=== PATIENT | male | born 1955 | race Caucasian/White ===

== ENCOUNTER → 2018-03-13 | Outpatient (CLI) | payer MEDICARE ==
--- NOTE | 2018-03-13 09:47 | US ---
EXAMINATION TYPE: US gallbladder DATE OF EXAM: 03/13/2018 COMPARISON: NONE CLINICAL HISTORY: R10.11 Abd Pain. acid reflux getting worse EXAM MEASUREMENTS: Liver Length: 14.8 cm Gallbladder Wall: 0.2 cm CBD: 0.6 cm Right Kidney: 10.3 x 5.3 x 5.1 cm Pancreas: not seen due to bowel gas Liver: multiple cystic areas seen, largest 4.6cm Gallbladder: wnl Evidence for sonographic Vega's sign: no CBD: wnl Right Kidney: wnl Suboptimal evaluation of pancreas due to overlying bowel gas. A few thin-walled cysts some with lobul ation and thin septation are marked by technologist throughout the liver. IMPRESSION: No shadowing mobile gallstones or ultrasound evidence for acute cholecystitis.
== END | disposition home or self-care (01) ==
LOC: RADUSWWP 08:17
PROVIDERS: ATTEND Family Medicine
DX: R10.11 Right upper quadrant pain (principal)
CPT/HCPCS: 76705

== ENCOUNTER 2018-05-13 09:48 | Day surgery (SDC) | payer MEDICARE ==
[2018-05-08 17:27] VITALS: BMI 32.5
[~2018-05-13 09:48] MED LIST: LACTATED RINGERS 1,000 ML IV SCH; LIDOCAINE 1% 20 ML VIAL (10MG/ML) FOR IV START INTRADERMA PRN
[2018-05-13 10:33] VITALS: RESP 18; TEMP 97.6
[2018-05-13] MEDS ORDERED: LACTATED RINGERS 1,000 ML IV ONE (10:38)
[2018-05-13] MEDS ORDERED: PROPOFOL 10 MG/ML 20 ML VIAL IV ONE (10:39)
[2018-05-13] MEDS ORDERED: LIDOCAINE 1% INJ 10MG/ML (20 ML MDV) ONE (10:39)
--- NOTE | 2018-05-13 10:44 | P.GSHP ---
History of Present Illness H&P Date: 05/13/18 Chief Complaint: GERD, change in bowel habits Patient here today for upper and lower endoscopy. Complaining of mild reflux. Reflux symptoms fairly well controlled with antiacid therapy. Also has had some change in bowel habits with thinner stools and increased flatus. Last colonoscopy 8-10 years ago. That study was normal. He does have a personal history of colon polyps. No family history of colon cancer. Past Medical History Past Medical History: GERD/Reflux, Hypertension, Osteoarthritis (OA), Prostate Disorder History of Any Multi-Drug Resistant Organisms: None Reported Past Surgical History: Adenoidectomy, Orthopedic Surgery, Tonsillectomy Additional Past Surgical History / Comment(s): RT KNEE SCOPE X 2, BILAT CTR, BILAT CATARACT REMOVAL, RT SHOULDER REPAIR, COLONOSCOPY, RT FOOT BONE SPUR REMOVED, COLONOSCOPY, EGD Past Anesthesia/Blood Transfusion Reactions: Family History of Problems w/ Anesthesia Additional Past Anesthesia/Blood Transfusion Reaction / Comment(s): FAMILY HX PONV WITH ANESTHESIA Smoking Status: Never smoker - Past Family History Father Family Medical History: Cancer Mother Family Medical History: Cancer Medications and Allergies Home Medications Medication Instructions Recorded Confirmed Type Lisinopril-Hctz 20-12.5 mg 1 tab PO DAILY 03/02/16 05/08/18 History [Zestoretic 20-12.5] Tamsulosin [Flomax] 0.4 mg PO DAILY 03/02/16 05/08/18 History Pantoprazole Sodium 20 mg PO DAILY 05/08/18 05/08/18 History Allergies Allergy/AdvReac Type Severity Reaction Status Date / Time Penicillins AdvReac ITCHING Verified 05/08/18 17:22 AND RASH Sulfa (Sulfonamide AdvReac ITCHING Verified 05/08/18 17:22 Antibiotics) AND RASH Surgical - Exam Vital Signs Temp Pulse Resp BP Pulse Ox 97.6 F 74 18 124/68 95 05/13/18 10:32 05/13/18 10:32 05/13/18 10:32 05/13/18 10:32 05/13/18 10:32 Physical exam: General: Well-developed, well-nourished HEENT: Normocephalic, sclerae nonicteric Abdomen: Nontender, nondistended Extremities: No edema Neuro: Alert and oriented Assessment and Plan (1) GERD (gastroesophageal reflux disease) Narrative/Plan: Will proceed with upper and lower endoscopy. Current Visit: Yes Status: Acute Code(s): K21.9 - GASTRO-ESOPHAGEAL REFLUX DISEASE WITHOUT ESOPHAGITIS SNOMED Code(s): 442421042
--- NOTE | 2018-05-13 10:58 | P.PCN ---
Date of Procedure: 05/13/18 Procedure(s) Performed: PREOPERATIVE DIAGNOSIS: GERD, change in bowel habits POSTOPERATIVE DIAGNOSIS: Small hiatal hernia, mild gastritis, normal colon PROCEDURE: 1. EGD with biopsy 2. Colonoscopy ANESTHESIA: MAC SURGEON: Rito Redmond M.D. SPECIMENS: Antrum ENDOSCOPIC PROCEDURE: The patient was on the endoscopy table in the left decubitus position. The Olympus gastroscope was inserted into the oropharynx and passed under direct visualization to the region of the third portion of the duodenum. From that point the scope was slowly withdrawn inspecting all surfaces carefully. There were no neoplastic inflammatory or polypoid lesions throughout the duodenum. The pylorus was widely patent. The stomach was carefully inspected. There was mild gastritis present. A biopsy of the antrum took place to rule out H. pylori. Retroflexion revealed a small sliding hiatal hernia. The esophagus was then carefully examined. There were no neoplastic inflammatory or polypoid lesions throughout the visualized esophagus. The patient was kept on the endoscopy table in the left decubitus position. The Olympus colonoscope was inserted into the anus and passed under direct visualization to the base of the cecum. The appendiceal orifice was visualized. From that point the scope was slowly withdrawn inspecting all surfaces carefully. There were no neoplastic inflammatory or polypoid lesions throughout the cecum, ascending, transverse, descending, sigmoid and rectum. There was no diverticulosis noted. Digital rectal examination was normal. The patient was taken to the recovery room in stable condition per anesthesia guidelines. RECOMMENDATIONS: Continue antiacids. Await biopsy results. Increase fiber. Follow-up colonoscopy in 5-10 years.
[2018-05-13 11:28] VITALS: BP 109/74; PULSE 69
== END 2018-05-13 11:56 | disposition home or self-care (01) ==
LOC: ORWHC2ENDO 09:48
PROVIDERS: ATTEND Surgery
DX: K29.70 Gastritis, unspecified, without bleeding (principal); K44.9 Diaphragmatic hernia without obstruction or gangrene; R19.4 Change in bowel habit; K21.9 Gastro-esophageal reflux disease without esophagitis; Z86.010 Personal history of colon polyps; I10 Essential (primary) hypertension; M19.90 Unspecified osteoarthritis, unspecified site; N42.9 Disorder of prostate, unspecified; Z79.899 Other long term (current) drug therapy; Z88.0 Allergy status to penicillin; Z88.2 Allergy status to sulfonamides
CPT/HCPCS: 88305; 45378; 43239; J2001; J2704

== ENCOUNTER → 2018-07-06 | Outpatient (CLI) | payer MEDICARE ==
--- NOTE | 2018-07-06 10:59 | MR ---
EXAMINATION TYPE: MR shoulder LT wo con DATE OF EXAM: 07/06/2018 COMPARISON: Outside left shoulder x-ray June 09, 2018. HISTORY: Left shoulder pain after injury per patient. TECHNIQUE: Multiplanar, multisequence imaging of the left shoulder is performed without contrast. FINDINGS: Rotator Cuff: There is partial tear of the supraspinatus tendon with a few of the anterior fibers rem aining intact. Marked abnormal signal with retraction of the posterior three-quarter fibers is noted. There is partial retracted tear of the anterior portion of the infraspinatus tendon with posterior o ne half fibers remaining intact. Marked focal fluid signal at this level subdeltoid/subacromial bursa is noted. Rotator cuff muscle bulk is preserved. Subscapularis tendon is intact. Acromioclavicular Joint: There is moderate to severe joint space loss with mild to moderate spurring and moderate to severe superior capsular hypertrophy at acromioclavicular joint. There is type II ami nsloping acromion noted. Loss inferior fat plane is present. Glenohumeral Joint: There is small to glenohumeral joint effusion. Moderate narrowing with mild infer ior spurring is present. Labrum: The superior labrum is torn with blunting and T2 hyperintense cleft. Biceps Tendon: The long head of biceps is felt to normal location in groove along distal axial images . Intra-articular portion is not well identified. Cannot exclude tear as there at anchor. Bone marrow signal: Heterogeneous subchondral cystic change posterior aspect superolateral humeral he ad is identified. There is subchondral cystic change involving the posterior inferior osseous glenoid . Other: No additional significant abnormality is appreciated. IMPRESSION: 1. Significant acute tears of portions of the supraspinatus and infraspinatus tendons. Background mod erate to borderline severe AC and glenohumeral joint arthropathy. Tear through the superior labrum in volving biceps anchor.
== END ==
LOC: RADMRIMAIN 09:38
PROVIDERS: ATTEND Orthopaedic Surgery
DX: S46.812A Strain of other muscles, fascia and tendons at shoulder and upper arm level, left arm, initial encounter (principal); M12.812 Other specific arthropathies, not elsewhere classified, left shoulder

== ENCOUNTER 2018-09-09 07:59 | Day surgery (SDC) | payer MEDICARE ==
[2018-09-07 10:51] VITALS: BMI 32.5
--- NOTE | 2018-09-08 13:53 | HP ---
HISTORY AND PHYSICAL DATE OF SURGERY: 09/09/2018 Jackson Cifuentes is a 63-year-old patient seen with progressive left shoulder pain. We discussed options. He elected to proceed with arthroscopy. Consent was obtained. PAST MEDICAL HISTORY: Hypertension, gastroesophageal reflux disease. PAST SURGICAL HISTORY: Right total knee arthroplasty, right shoulder arthroscopy, carpal tunnel release. DAILY MEDICATIONS: 1. Lisinopril/hydrochlorothiazide. 2. Pantoprazole. ALLERGIES: SULFA, PENICILLIN. SOCIAL HISTORY: Patient denies tobacco use. PHYSICAL EVALUATION OF THE LEFT SHOULDER: Flexion 170, abduction 170 degrees, external rotation is 50 degrees. Weakness, tenderness along the anterolateral acromion rotator cuff insertion site. Impingement positive 90 degrees, drop-arm sign is positive. Distal neurovascular exam is intact. RADIOGRAPHS OF THE LEFT SHOULDER: Type 2 anterior acromion. Cystic changes of the greater tuberosity. Left shoulder MRI, rotator cuff tear teresa, acromioclavicular joint osteoarthritis and labral tear. IMPRESSION: 1. Left shoulder impingement with rotator cuff tear. 2. Left shoulder acromioclavicular joint osteoarthritis. PLAN: Left shoulder arthroscopy with subacromial decompression, probable arthroscopic rotator cuff repair, probable Stefanie procedure and debridement. MMODL / IJN: [id number] /
[~2018-09-09 07:59] MED LIST changes: +DEXAMETHASONE SOD PHOSPHATE 10 MG/ML 1 ML VIAL IV ONE; +HYDROmorphone 0.5 MG/0.5 ML SYRINGE IVP PRN; +ONDANSETRON 4 MG/2 ML VIAL IVP ONE; +SCOPOLAMINE 1.5MG/72HR PATCH TRANSDERM ONE; +ceFAZolin IN SWFI 2 GM/20 ML SYRINGE IVP ONE
[2018-09-09] MEDS ORDERED: MIDAZOLAM 2 MG/2 ML VIAL IVP ONE (08:40)
[2018-09-09] MEDS ORDERED: fentaNYL (PF) 50 MCG/ML 2 ML AMP IVP ONE (08:41)
--- NOTE | 2018-09-09 09:10 | P.ONQ ---
Anesthesiology Proc Note - PNB - Peripheral Nerve Block Performed Left Interscalene Single Time Out Performed: Yes Procedure Stop Time: 08:39 Indication: Acute Post-Operative Pain, Analgesia Specifically requested for management of pain by DrSasha: Cesar Baptiste Sedation Type: Sedate with meaningful contact maintained Preparation: Sterile Prep Position: Supine Catheter: None Needle Types: Other (see comment) (Pajunk) Needle Size: 50mm (2") Needle Gauge: 21 Technique: Ultrasound Injectate: 0.5% Ropivacaine (see comment for volume) (20cc) Blood Aspirated: Yes Pain Paresthesia on Injection Noted: No Resistance on Injection: Normal Events: Other (see comment) (Needle repositioned after blood asp.)
[2018-09-09] MEDS ORDERED: ROPIVACAINE 5 MG/ML 30 ML VIAL ONE (10:08)
[2018-09-09] MEDS ORDERED: PROPOFOL 10 MG/ML 20 ML VIAL IV ONE (10:08)
[2018-09-09] MEDS ORDERED: MIDAZOLAM 2 MG/2 ML VIAL ONE (10:08)
[2018-09-09] MEDS ORDERED: fentaNYL (PF) 50 MCG/ML 2 ML AMP ONE (10:08)
[2018-09-09] MEDS ORDERED: LIDOCAINE 1% INJ 10MG/ML (20 ML MDV) ONE (10:08)
[2018-09-09] MEDS ORDERED: SUCCINYLCHOLINE CHLORIDE 100 MG/5 ML SYR IV ONE (10:08)
[2018-09-09] MEDS ORDERED: LACTATED RINGERS 1,000 ML IV ONE ×2 (11:20→13:43)
--- NOTE | 2018-09-09 11:53 | P.OP ---
Date of Procedure: 09/09/18 Preoperative Diagnosis: Left shoulder impingement Postoperative Diagnosis: 1. Left shoulder rotator cuff tear 2. Left shoulder impingement 3. Left shoulder acromioclavicular joint osteoarthritis Procedure(s) Performed: 1. Left shoulder arthroscopic rotator cuff repair 2. Left shoulder arthroscopic subacromial decompression 3. Left shoulder arthroscopic Stefanie procedure Anesthesia: GETA, regional (Interscalene block) Surgeon: Cesar Baptiste [employer] Supervisor #1: Chip Blount Estimated Blood Loss (ml): 5 Pathology: none sent Condition: stable Disposition: PACU Indications for Procedure: 63-year-old patient seen with progressive left shoulder pain. After having treatment options discussed, he elected to proceed with arthroscopy. Operative Findings: See description of procedure Description of Procedure: Patient underwent an interscalene block by department of anesthesia. The patient was then taken to the operative suite. The patient underwent a general anesthetic by the department of anesthesia. The patient was placed into a lateral position and secured. There was appropriate padding of the bony prominence. Left shoulder was then prepped and draped in normal sterile orthopedic fashion. We placed the extremity in 10 pounds of longitudinal traction. A posterior incision was now made for a posterior working portal site. The trocar and cannula were inserted into the glenohumeral joint. Arthroscopy was initiated. Spinal needle was now inserted anteriorly, to ascertain the anterior working portal site. An incision was now made in that area, a trocar was inserted followed by a probe. There was some superficial fraying of the labrum. The biceps tendon was absent consistent with a chronic long head tendon rupture. There were some grade 1 chondromalacia changes with no osteochondral tears present. I debrided the superficial fraying with a motorized shaver. The residual labrum was stable. Instruments removed from the glenohumeral joint. Utilizing the posterior working portal site, the trocar and cannula were inserted into the subacromial space. Arthroscopy initiated. I made an incision 2 fingerbreadths lateral to the acromion. I introduced my trocar followed by my ArthroCare ablator. I now began ablating thick subacromial bursal tissue, which exposed the undersurface of the anterior acromion. There was diminished subacromial space. There was a very prominent anterior acromion. A motorized bur was introduced and a subacromial decompression was performed. I also excised some osteophytes off the inferior aspect of the distal clavicle. The AC joint was visualized and noted to be fairly arthritic. The motorized bur was introduced in the anterior portal site and a Stefanie procedure was performed without difficulty, decompressing the AC joint nicely. I turned my attention to the rotator cuff. There was a 2 cm intrasubstance tear posterior aspects supraspinatus. I debrided those margins getting down to stable tendon tissue. I passed 2 simple sutures and the [id number] repair. The suture limbs were clipped. The repair was probed and found to be stable. I injected 1 mL Renue intra-articular. Instruments now removed from the portal sites. All portal sites were approximated with nylon suture. Sterile dressings were applied followed by a shoulder immobilizer. Chip LAKE assisted in this complex case. The patient was awakened, transferred to a bed, and taken to recovery in stable condition.
[2018-09-09 11:55] VITALS: TEMP 97
[2018-09-09] MEDS ORDERED: ONDANSETRON 4 MG/2 ML VIAL IVP ONE (12:17)
[2018-09-09] MEDS ORDERED: HALOPERIDOL LACTATE 5 MG/ML 1 ML VIAL IVP PRN ×2 (13:21→18:00)
[2018-09-09 14:10] LABS: Glucose,Whole Blood 188 mg/dL (75-99)
[2018-09-09 18:11] VITALS: BP 118/76; PULSE 86; RESP 18
== END 2018-09-09 18:10 | disposition home or self-care (01) ==
LOC: OR 07:59
PROVIDERS: ATTEND Orthopaedic Surgery
DX: M75.102 Unspecified rotator cuff tear or rupture of left shoulder, not specified as traumatic (principal); M75.42 Impingement syndrome of left shoulder; M25.712 Osteophyte, left shoulder; M25.812 Other specified joint disorders, left shoulder; N40.0 Benign prostatic hyperplasia without lower urinary tract symptoms; M94.212 Chondromalacia, left shoulder; M19.012 Primary osteoarthritis, left shoulder; I10 Essential (primary) hypertension; K21.9 Gastro-esophageal reflux disease without esophagitis; Z88.0 Allergy status to penicillin; Z88.2 Allergy status to sulfonamides; Z79.899 Other long term (current) drug therapy; Z96.652 Presence of left artificial knee joint
CPT/HCPCS: 64415; 29827; 29824; 29826; C1713; C1765; J2250; J1630; J1100; J2405; J2001; J3010; J2795; J0330; J2704; J0690

== ENCOUNTER → 2018-11-11 | Outpatient (CLI) | payer MEDICARE ==
--- NOTE | 2018-11-11 16:11 | MR ---
EXAMINATION TYPE: MR shoulder RT wo con DATE OF EXAM: 11/11/2018 COMPARISON: CT 06/09/2009 HISTORY: Pain in right shoulder TECHNIQUE: Multiplanar, multisequence imaging of the right shoulder is performed without contrast. FINDINGS: There is extensive susceptibility artifact which may limit evaluation. Rotator Cuff: Suspect a chronic rotator cuff tear with retraction to the level of the acromion. Acromioclavicular Joint: Hypertrophic changes are present. Glenohumeral Joint: Arthropathy changes present, is remodeling, the right shoulder is high riding. Labrum: Not well appreciated. Biceps Tendon: Abnormal increased signal associated with the long head of biceps tendon, there is lik christianne underlying tendinosis, possible tear. Bone marrow signal: There are likely pseudocysts present within the humeral head. Other: There is likely a joint effusion. Remodeling is present at the humeral head. IMPRESSION: Exam is limited. There is arthropathy. Chronic rotator cuff tear. Joint effusion. Additio nal findings above. Postop changes.
== END ==
LOC: RADMRIMAIN 12:36
PROVIDERS: ATTEND Orthopaedic Surgery
DX: M19.011 Primary osteoarthritis, right shoulder (principal); M75.101 Unspecified rotator cuff tear or rupture of right shoulder, not specified as traumatic

== ENCOUNTER → 2020-01-25 | Outpatient (CLI) | payer MEDICARE ==
[2020-01-25 07:24] LABS: African American GFR (CKD) >90 (>60 ml/min/1.73 sqM); Blood Urea Nitrogen 20 mg/dL (9-20); Non-African American GFR(CKD) >90 (>60 ml/min/1.73 sqM)
--- NOTE | 2020-01-25 08:31 | US ---
EXAMINATION TYPE: US carotid duplex BILAT DATE OF EXAM: 01/25/2020 COMPARISON: NONE CLINICAL HISTORY: R51 headache R55 syncope. EXAM MEASUREMENTS: RIGHT: Peak Systolic Velocity (PSV) cm/sec ----- Right CCA: 89.7 ----- Right ICA: 76.4 ----- Right ECA: 74.7 ICA/CCA ratio: 0.9 RIGHT: End Diastole cm/sec ----- Right CCA: 19.3 ----- Right ICA: 31.1 ----- Right ECA: 12.7 LEFT: Peak Systolic Velocity (PSV) cm/sec ----- Left CCA: 76.5 ----- Left ICA: 63.3 ----- Left ECA: 79.9 ICA/CCA ratio: 0.8 LEFT: End Diastole cm/sec ----- Left CCA: 18.2 ----- Left ICA: 17.1 ----- Left ECA: 11.9 VERTEBRALS (direction of flow): Right Vertebral: Antegrade Left Vertebral: Antegrade Rhythm: Normal No significant stenosis seen. No elevated velocities. Bilateral plaque noted, left greater than right . IMPRESSION: Mild degree of grayscale atheromatous plaquing with no sonographically evident hemodynam ically significant stenosis within either visualized carotid arterial system. Criteria for Assigning % of Stenosis / Diameter reduction (Estimation based on the indirect measurements of the internal carotid artery velocities (ICA PSV). 1. Normal (no stenosis)=ICA PSV < 125 cm/s: ratio < 2.0: ICA EDV<40 cm/s. 2. Less than 50% stenosis=ICA PSV < 125 cm/s: ratio < 2.0: ICA EDV<40 cm/s. 3. 50 to 69% stenosis=ICA PSV of 125 to 230 cm/s: ration 2.0 ? 4.0: ICA EDV 40-100 cm/s. 4. Greater than 70% stenosis to near occlusion= ICA PSV > 230 cm/s: ratio > 4.0: ICA EDV > 100 cm/s. 5. Near occlusion= ICA PSV velocities may be low or undetectable: variable ratio and ICA EDV. 6. Total occlusion=unable to detect flow.
--- NOTE | 2020-01-25 09:17 | CT ---
EXAMINATION TYPE: CT brain wo/w con DATE OF EXAM: 01/25/2020 COMPARISON: None INDICATION: lightheaded, PENG DLP: 1784.2 mGycm, Automated exposure control for dose reduction was used. CONTRAST: None CT of the brain is performed utilizing 3 mm thick sections through the posterior fossa and 3 mm thick sections through the remaining calvarium. Study is performed within 24 hours of arrival to the hosp [facility]. No abnormal hyperdensity is present to suggest an acute intracranial hemorrhage. No mass lesion is evident. No acute infarcts are evident. Following contrast no suspicious enhancement is evident. Ventricles and sulci are appropriate for the patient age. Paranasal sinuses and mastoid air cells within the [id number] are clear. IMPRESSIONS: 1. Normal pre and postcontrast CT brain
== END | disposition home or self-care (01) ==
LOC: RADCTMAIN 06:35
PROVIDERS: ATTEND Family Medicine
DX: I67.2 Cerebral atherosclerosis (principal); R55 Syncope and collapse; Z88.0 Allergy status to penicillin; Z88.2 Allergy status to sulfonamides
CPT/HCPCS: 82565; 84520; 93880; 70470; 36415; Q9967

== ENCOUNTER → 2021-01-30 | Outpatient (CLI) | payer MEDICARE ==
--- NOTE | 2021-01-30 15:33 | XR ---
EXAMINATION TYPE: XR chest 2V DATE OF EXAM: 01/30/2021 COMPARISON: None INDICATION: Short of breath TECHNIQUE: Frontal and lateral views of the chest are obtained. FINDINGS: The heart size is normal. The pulmonary vasculature is normal. There is irregular increased lung markings the right upper lobe. Findings appear suggestive for some fibrosis. Pneumonia however should be considered. There is some infiltrate along the left diaphragm i s mildly. The right lung base. Some hyperinflation and flattened diaphragms is present suggesting brigid e underlying emphysematous changes.. IMPRESSION: 1. Right upper lobe infiltrate. Correlate for pneumonia. Scarring should be considered. 2. Left basilar infiltrate more likely related to atelectasis. 3. Follow-up is recommended. Neoplasm is not excluded. 4. Emphysematous changes
== END | disposition home or self-care (01) ==
LOC: RADXRMAIN 15:16
PROVIDERS: ATTEND Family Medicine
DX: R91.8 Other nonspecific abnormal finding of lung field (principal); J43.9 Emphysema, unspecified
CPT/HCPCS: 71046

== ENCOUNTER → 2021-02-15 | Outpatient (CLI) | payer MEDICARE ==
[2021-02-15 18:11] LABS: African American GFR (CKD) >90 (>60 ml/min/1.73 sqM); Blood Urea Nitrogen 20 mg/dL (9-20); Non-African American GFR(CKD) 90 (>60 ml/min/1.73 sqM)
--- NOTE | 2021-02-16 09:14 | CT ---
EXAMINATION TYPE: CT chest wo/w con DATE OF EXAM: 02/15/2021 COMPARISON: None HISTORY: Shortness of breath. CT DLP: 992.4 mGycm, Automated exposure control for dose reduction was used. CONTRAST: Performed injected with 100ml mL of Isovue 300. TECHNIQUE: Axial images were obtained at 5 mm thick sections. Reconstructed images are reviewed on [employer] computer in the coronal plane. FINDINGS: Portion of the thyroid visualized is normal. There is a consolidation with cavitation in the right upper lobe. Correlate for neoplasm. Emphysemato us changes are present at the lung apices. There is a 0.8 cm nodule within the periphery of the anterior lateral right upper lobe. Series 5 imag e 22. There may be a 1.1 cm pretracheal lymph node present. Additional pretracheal adenopathy is present m easuring 1.8 cm at the level of the watson. Subcarinal lymph node measures 1.5 cm. Hilar adenopathy i s not identified. Note is made of some coronary artery calcification. The ascending aorta diameter at the level of the main pulmonary artery is 3.7 cm. The main pulmonary artery diameter at the bifurcation is 3.[address] sections are obtained through the upper abdomen. Multiple hypodensities are scattered thro ugh liver likely on the basis of hepatic cysts. These appear to have low-density. These are not compl etely smooth bordered metastasis considered less likely could be considered. Upper abdomen is otherwi se unremarkable. IMPRESSIONS: 1. Consolidation with cavitation right upper lobe. PET/CT is recommended for workup for neoplasm. 2. Advanced emphysematous changes. 3. Enlarged mediastinal adenopathy. 4. Suspected hepatic cysts. Recommend a PET/CT could further evaluate for underlying metastasis.
== END | disposition home or self-care (01) ==
LOC: RADCTMAIN 17:23
PROVIDERS: ATTEND Family Medicine
DX: J43.9 Emphysema, unspecified (principal); R59.0 Localized enlarged lymph nodes
CPT/HCPCS: 82565; 84520; 71270; 36415; Q9967

== ENCOUNTER → 2021-02-23 | Outpatient (CLI) | payer MEDICARE ==
--- NOTE | 2021-02-27 07:48 | PE ---
EXAMINATION TYPE: PET CT fusion skull to thigh DATE OF EXAM: 02/23/2021 COMPARISON: Chest CT February 15, 2021 HISTORY: Solitary pulmonary nodule, abnormal CT. TECHNIQUE: Following the intravenous administration of 11.51 mCi of F-18 FDG, whole body images are performed from the skull base to the midthigh. Images are reviewed on the computer in the coronal, a xial, and sagittal planes. Reconstructed rotating images are created on independent workstation and reviewed on the computer. A localization and attenuation correction CT is performed in conjunction with the PET scan. Blood glucose level equals 81. SCAN: Initial Scan FINDINGS: SKULL BASE AND NECK: No areas of abnormal hypermetabolic uptake. CHEST, MEDIASTINUM, AND HILAR REGION: Redemonstration of mild to moderate underlying emphysematous ch belkis. Redemonstration of consolidation with cavitary lesion in the right upper lobe measuring approxi mately 5.9 x 3.5 cm axial image 77, max SUV is 5.47 on axial image 74. Abnormal right tracheobronchial 1.5 x 1.4 cm lymph node with some central fat, mild hypermetabolic up take, max SUV is 3.73 on axial image 86. Superior to this there is abnormal hypermetabolic right para tracheal lymph node measuring 2.4 x 1.6 cm axial image 77, max SUV is 4.73. Mild hypermetabolic focus right hilar level near axial image 91, max SUV is 2.48. No additional areas of abnormal hypermetabolic uptake. ABDOMEN AND PELVIS: No adrenal masses. No areas of abnormal hypermetabolic uptake. Low dense lesions throughout liver show no suspicious hypermetabolic uptake. OSSEOUS STRUCTURES: Mild hypermetabolic uptake anterolateral left fifth through seventh ribs correspo nds to healing or subacute fractures. No additional areas of abnormal hypermetabolic uptake. OTHER CT: Mild/moderate calcified plaque left carotid bulb level. Enlarged main pulmonary artery at 3.9 cm axial image 89, CT findings consistent with underlying pulmo nary artery hypertension. Low lung volumes and mild cardiomegaly. Moderate coronary artery calcificat ion. Low-density lesions consistent with simple thin-walled cysts scattered throughout the liver. Few dive rticula in the sigmoid colon. Mildly enlarged prostate consistent with BPH. Moderate narrowing of bot h hip joints. IMPRESSION: Findings could reflect infectious process but neoplasm is suspected given abnormal medias tinal adenopathy. Advise biopsy confirmation. No metastatic disease noted.
== END | disposition home or self-care (01) ==
LOC: RADPETMAIN 14:32
PROVIDERS: ATTEND Family Medicine
DX: R59.0 Localized enlarged lymph nodes (principal); J98.4 Other disorders of lung; I28.8 Other diseases of pulmonary vessels; K76.9 Liver disease, unspecified
CPT/HCPCS: 78815; A9552

== ENCOUNTER → 2021-03-07 | Outpatient (CLI) | payer MEDICARE ==
[2021-03-07 11:22] LABS: Appearance,Urine Clear (Clear); Bilirubin,Urine Negative (Negative); Blood,Urine Negative (Negative); Color,Urine Yellow; Glucose,Urine (UA) Negative (Negative); Ketones,Urine Negative (Negative); Leukocyte Esterase,Urine Negative (Negative); Nitrite,Urine Negative (Negative); PH, Urine 5.5 (5.0-8.0); Protein,Urine Negative (Negative); Specific Gravity,Urine 1.013 (1.001-1.035); Urobilinogen,Urine <2.0 mg/dL (<2.0)
[2021-03-07 16:52] LABS: HGB 14.6 g/dL (13.0-17.0); MCH 28.7 pg (27.0-32.0); MCHC 32.4 g/dL (32.0-37.0); MCV 88.4 fL (80.0-97.0); Mean Platelet Volume 10.3 fL (9.5-12.2); Platelet Count 384 X 10*3/uL (140-440); RBC 5.09 X 10*6/uL (4.40-5.60); WBC 10.09 X 10*3/uL (4.50-10.00)
[2021-03-07 21:26] LABS: Erythrocyte Sedimentation Rate 11 mm/Hr (0-20)
[2021-03-07 22:51] LABS: Hemoglobin A1C 5.6 % (4.0-6.0)
[2021-03-07 23:32] LABS: African American GFR (CKD) 107.1 (60.0-200.0); Albumin 4.3 g/dL (3.80-4.90); Albumin/Globulin Ratio 1.65 (1.60-3.17); Anion Gap 9.7 mmol/L (4.00-12.00); BUN/Creat Ratio 17.5 Ratio (12.00-20.00); Calcium 9.2 mg/dL (8.7-10.3); Carbon Dioxide 22.3 mmol/L (21.6-31.8); Chol/HDL Ratio 4.26; Globulin 2.6 g/dL (1.6-3.3); LDL Cholesterol,Calculated 103.4 mg/dL (0.0-131.0); Non-African American GFR(CKD) 92.4 (60.0-200.0); Potassium 4.3 mmol/L (3.5-5.5); Total Bilirubin 0.7 mg/dL (0.2-1.2); Total Protein 6.9 g/dL (6.2-8.2); VLDL Calculation 20.6 mg/dL (5.00-40.00)
[2021-03-07 23:42] LABS: T4, Free (Free Thyroxine) 1.2 ng/dL (0.80-1.80)
[2021-03-07 23:43] LABS: Prostate Specific Antigen 3.1 ng/mL (0.0-4.5)
== END | disposition home or self-care (01) ==
LOC: LABWHC1 10:41
PROVIDERS: ATTEND Family Medicine
DX: J18.9 Pneumonia, unspecified organism (principal); R91.8 Other nonspecific abnormal finding of lung field
CPT/HCPCS: 36415; 80053; 80061; 81003; 82103; 82164; 82306; 83036; 84153; 84439; 84443; 85027; 85652

== ENCOUNTER 2021-04-06 11:10 | Day surgery (SDC) | payer MEDICARE ==
[2021-04-04 09:08] VITALS: BMI 32.8
[~2021-04-06 11:10] MED LIST changes: +ALBUTEROL NEB (CONC) 2.5 MG/0.5 ML INHALATION ONE; -DEXAMETHASONE SOD PHOSPHATE 10 MG/ML 1 ML VIAL IV ONE; -HYDROmorphone 0.5 MG/0.5 ML SYRINGE IVP PRN; +LIDOCAINE 1% (10MG/ML) FOR IV START INTRADERMA PRN; -LIDOCAINE 1% 20 ML VIAL (10MG/ML) FOR IV START INTRADERMA PRN; +LIDOCAINE 2% (PF) 20 MG/ML 5 ML VIAL INHALATION ONE; +LIDOCAINE VISCOUS 300 MG/15 ML CUP MUCOUS MEM ONE; -ONDANSETRON 4 MG/2 ML VIAL IVP ONE; -SCOPOLAMINE 1.5MG/72HR PATCH TRANSDERM ONE; -ceFAZolin IN SWFI 2 GM/20 ML SYRINGE IVP ONE
[2021-04-06 11:42] VITALS: TEMP 98
[2021-04-06] MEDS ORDERED: PROPOFOL 10 MG/ML 20 ML VIAL IV ONE (12:16)
[2021-04-06] MEDS ORDERED: LIDOCAINE 1% INJ 10MG/ML (20 ML MDV) ONE (12:16)
[2021-04-06] MEDS ORDERED: KETAMINE 10 MG/ML 20 ML VIAL ONE (12:16)
[2021-04-06] MEDS ORDERED: LIDOCAINE 2% INJ 20 MG/ML INTRATRACH ONE (12:22)
[2021-04-06] MEDS ORDERED: IV FLUID CONTINUATION 1,000 ML IV ONE (12:33)
[2021-04-06 12:53] VITALS: BP 126/75; PULSE 81; RESP 16
--- NOTE | 2021-04-06 20:00 | PCN ---
PROCEDURE NOTE PROCEDURE PERFORMED: Bronchoscopy and bronchoalveolar lavage of the right upper lobe. PREOPERATIVE DIAGNOSIS: Right upper lobe pneumonia and post inflammatory changes in the right upper lobe. POSTOPERATIVE DIAGNOSIS: Right upper lobe pneumonia and post inflammatory changes in the right upper lobe. ANESTHESIA USED: IV conscious sedation. PROCEDURE DETAILS: The patient was prepared according the bronchoscopy protocol. The patient was brought into the bronchoscopy suite, he was placed in supine position, O2 was applied via Ventimask over the mouth, we monitored his O2 saturation continuously, blood pressure was intermittently monitored, and cardiac rhythm was continuously monitored. After adequate IV conscious sedation, lidocaine was instilled into the right naris, and the bronchoscope was advanced through the right naris down to the area of the vocal cords. The vocal cords were visualized, and they were basically intact. Lidocaine was applied over the vocal cords, and the bronchoscope was advanced further down to the trachea. Thorough examination was done of the trachea, watson, right upper lobe, right middle lobe, right lower lobe, left upper lobe lingula and left lower lobe. There was evidence of minimal purulent secretions in the right upper lobe. Bronchoalveolar lavage was done of the right upper lobe, including right anterior segment, right apical and posterior segments, lavage was performed of all the segments of the right upper lobe, there was no evidence of any endobronchial tumors, there was no evidence of any inflammation of the bronchial mucosa. Procedure was well tolerated, the fluid obtained was sent for different diagnostic studies. MMODL / IJN: [id number] /
[2021-04-06 22:28] LABS: Appearance,BF Hazy; Color,BF Colorless; Nucleated Cells, Body Fluid 615 /uL; RBC, Body Fluid 90 /uL
[2021-04-06 22:32] LABS: Mononuclear WBC,Body Fluid 4 %; Polynuclear WBC,Body Fluid 95 %; Total Cells Counted,Body Fluid 100
== END 2021-04-06 13:27 | disposition home or self-care (01) ==
LOC: ORWHC2ENDO 11:10
PROVIDERS: ATTEND Internal Medicine
DX: J18.9 Pneumonia, unspecified organism (principal); N40.0 Benign prostatic hyperplasia without lower urinary tract symptoms; K21.9 Gastro-esophageal reflux disease without esophagitis; Z88.0 Allergy status to penicillin; Z88.2 Allergy status to sulfonamides
CPT/HCPCS: 87798 ×3; 87496; 87498; 87529; 88108; 88305; 87305; 89050; 87252; 87502; 87634; 87070; 87205; 87116; 87102; 87206; 31624; J2001 ×2; J2704

== ENCOUNTER → 2022-02-06 | Outpatient (CLI) | payer MEDICARE ==
--- NOTE | 2022-02-07 03:25 | MR ---
EXAMINATION TYPE: MR shoulder LT wo con DATE OF EXAM: 02/06/2022 COMPARISON: 07/06/2018 HISTORY: Left Shoulder Pain Multiplanar multiecho imaging of the left shoulder with no contrast. There is moderate shoulder joint effusion. There is fluid around the biceps tendon. There is complete tear of the subscapularis tendon. There is some retraction. The glenoid shaka appear intact. There i s mild narrowing of the shoulder joint space. There is a large full-thickness tear of the anterior as pect of the supraspinatus tendon. There is subdeltoid and subacromial effusion.There are small degene rative cysts in the greater tuberosity of the humerus. No fracture line seen. AC joint is intact. No subacromial impingement. Infraspinatus tendon appears intact. IMPRESSION: There is subscapularis tendon tear. There is full-thickness tear of the anterior supraspinatus tendon . There is shoulder joint effusion and subdeltoid effusion. No fracture seen. There are some osteoart hritic narrowing of the shoulder joint space. Compared to old exam there is progression of the supraspinatus tendon tear. There is improvement in t he edema of the infraspinatus tendon. The subscapularis tendon tear appears new compared to old exams . Shoulder joint effusion significantly increased compared to old exam.
== END | disposition home or self-care (01) ==
LOC: RADMRIMAIN 10:51
PROVIDERS: ATTEND Orthopaedic Surgery
DX: M75.122 Complete rotator cuff tear or rupture of left shoulder, not specified as traumatic (principal); M19.012 Primary osteoarthritis, left shoulder

== ENCOUNTER → 2022-02-26 | Outpatient (CLI) | payer MEDICARE ==
[2022-02-26 14:23] LABS: African American GFR (CKD) >90 (>60 ml/min/1.73 sqM); Blood Urea Nitrogen 17 mg/dL (9-20); Non-African American GFR(CKD) 82 (>60 ml/min/1.73 sqM)
--- NOTE | 2022-02-26 15:12 | CT ---
EXAMINATION TYPE: CT chest w con DATE OF EXAM: 02/26/2022 COMPARISON: 02/15/2021 HISTORY: interstitial pulmonary disease CT DLP: 530.60 mGycm Automated exposure control for dose reduction was used. CONTRAST: CT scan of the chest is performed with IV Contrast, patient injected with 70 mL of Isovue 300. FINDINGS: LUNGS: There is a consolidation right upper lobe seen previously have resolved. There is parenchymal scarring noted within the right upper lobe. There is moderate emphysematous change seen. Other scatte red subpleural fibrosis greatest at the lung bases. Overall the appearance is stable. No evidence for consolidation, nodule or mass at this time. MEDIASTINUM: There are no greater than 1 cm hilar or mediastinal lymph nodes. No pericardial effusi on is seen. Thoracic aorta is of normal caliber. Cardiomegaly with coronary artery calcifications. UPPER ABDOMEN: Hepatic cystic changes are redemonstrated. Small hiatal hernia. OTHER: No additional significant abnormality is seen. IMPRESSION: 1. Radiographic pulmonary fibrosis appears essentially unchanged relative to prior examination. A 2. Resolution of areas of consolidation right upper lobe. Emphysematous changes as noted.
== END | disposition home or self-care (01) ==
LOC: RADCTMAIN 13:38
PROVIDERS: ATTEND Internal Medicine
DX: J43.9 Emphysema, unspecified (principal)
CPT/HCPCS: 82565; 84520; 71260; 36415; Q9967

== ENCOUNTER → 2023-02-14 | Outpatient (CLI) | payer MEDICARE ==
[2023-02-14 11:36] LABS: African American GFR (CKD) >90 (>60 ml/min/1.73 sqM); Blood Urea Nitrogen 17 mg/dL (9-20); Non-African American GFR(CKD) >90 (>60 ml/min/1.73 sqM)
--- NOTE | 2023-02-14 18:00 | CT ---
EXAMINATION TYPE: CT chest w con DATE OF EXAM: 02/14/2023 COMPARISON: 02/26/2022, 02/23/2021 HISTORY: 67-year-old male R91.1, follow-up lung nodule TECHNIQUE: Contiguous axial scanning of the chest after the administration of 100 mL of Isovue 300. Coronal/sagittal reconstructions performed. CT DLP: 550.5mGycm. Automatic exposure control utilized for a dose reduction. FINDINGS: Heart upper limits of normal in size. No pericardial effusion. LAD and circumflex coronary artery precious cifications are present. Aneurysmal aortic root at 4.4 cm measured at 4.3 cm, previously. Ectatic ascending aorta 3.7 cm with conventional arch vessel branching anatomy. Borderline enlarged right peritracheal node at 1 cm short axis is unchanged. No thoracic lymphadenopa thy. Moderate centrilobular emphysema. Subpleural reticulation and groundglass change. Some scattered subp leural microcystic changes also present. Some additional scattered interstitial groundglass change pr esent scattered throughout. Overall changes are similar to 02/26/2022. 9 mm right middle lobe nodule, axial image 41, unchanged. Small to moderate-sized hiatal hernia. Numerous hepatic cysts in the visualized upper abdomen measuri ng up to 3.9 cm. 3 mm nonobstructive left renal calculus. Mild multilevel degenerative disc disease throughout the thoracic spine. IMPRESSION: 1. COPD with moderate emphysema and superimposed interstitial fibrosis, possible fibrotic NSIP or oth er chronic interstitial lung disease. Overall similar appearance from 02/26/2022. 2. A 9 mm right middle lobe pulmonary nodule remains unchanged back to 02/23/2021 compatible with a ramon ign etiology. 3. A 4.4 cm aneurysm of the aortic root relatively similar compared to 4.3 cm, previously. 4. COPD with LAD and circumflex coronary calcifications. 5. Small to moderate-sized hiatal hernia.
== END | disposition home or self-care (01) ==
LOC: RADCTMAIN 10:58
PROVIDERS: ATTEND Internal Medicine
DX: J43.2 Centrilobular emphysema (principal); R91.1 Solitary pulmonary nodule; K44.9 Diaphragmatic hernia without obstruction or gangrene; J84.9 Interstitial pulmonary disease, unspecified; I70.0 Atherosclerosis of aorta
CPT/HCPCS: 82565; 84520; 71260; 36415; Q9967

== ENCOUNTER 2023-02-26 08:11 | Emergency (ER) | payer MEDICARE ==
[2023-02-26 08:21] VITALS: RESP 16
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
--- NOTE | 2023-02-26 09:36 | XR ---
EXAMINATION TYPE: XR shoulder complete LT DATE OF EXAM: 02/26/2023 CLINICAL HISTORY: pain COMPARISON: NONE TECHNIQUE: Three views of the left shoulder are obtained. FINDINGS: There is no acute fracture/dislocation evident. The acromioclavicular and glenohumeral tristian int spaces appear moderately narrowed. The visualized ribs are intact and unremarkable. Triangular r adiopaque density is of uncertain etiology. IMPRESSION: 1. There is no acute fracture or dislocation. ICD 10 NO FRACTURE, INITIAL EVALUATION
--- NOTE | 2023-02-26 09:40 | XR ---
EXAMINATION TYPE: XR ribs LT w pa chest xray DATE OF EXAM: 02/26/2023 CLINICAL HISTORY: Pain, Fall COMPARISON: 01/30/2021 Four views of the ribs demonstrate nondisplaced fractures of left rib 7,8, 9 and 10. No evidence for pneumothorax. Left basilar atelectasis. Chronic appearing density throughout the right lung. Visualiz ed lungs are clear. No evidence for pneumothorax. IMPRESSION: nondisplaced fractures of left rib 7,8, 9 and 10.
[2023-02-26 10:12] VITALS: BP 133/89; PULSE 61; TEMP 98
== END 2023-02-26 10:13 | disposition home or self-care (01) ==
LOC: EC 08:11
DX: S22.42XA Multiple fractures of ribs, left side, initial encounter for closed fracture (principal); K21.9 Gastro-esophageal reflux disease without esophagitis; M19.90 Unspecified osteoarthritis, unspecified site; Z79.1 Long term (current) use of non-steroidal anti-inflammatories (NSAID); Z79.899 Other long term (current) drug therapy; Z88.0 Allergy status to penicillin; Z88.2 Allergy status to sulfonamides; Z87.891 Personal history of nicotine dependence; X58.XXXA Exposure to other specified factors, initial encounter; V86.96XA Unspecified occupant of dirt bike or motor/cross bike injured in nontraffic accident, initial encounter
CPT/HCPCS: 99284

== ENCOUNTER → 2023-05-21 | Outpatient (CLI) | payer MEDICARE | END | disposition home or self-care (01) | LOC: LABPAT 09:06 | PROVIDERS: ATTEND Orthopaedic Surgery | DX: Z01.812 Encounter for preprocedural laboratory examination (principal); M17.12 Unilateral primary osteoarthritis, left knee; Z22.322 Carrier or suspected carrier of Methicillin resistant Staphylococcus aureus ==

== ENCOUNTER 2023-06-02 08:17 | Day surgery (SDC) | payer MEDICARE ==
[2023-05-26 15:57] VITALS: BMI 31.4
--- NOTE | 2023-06-01 15:37 | HP ---
HISTORY AND PHYSICAL DATE OF SURGERY: 06/02/2023. HISTORY OF PRESENT ILLNESS: Jackson Cifuentes is a 67-year-old gentleman seen with symptomatic left knee osteoarthritis. We discussed options for treatment. He elects to proceed with left total knee arthroplasty. Consent was obtained. Medical clearance was provided by Dr. Walker and Dr. Little. PAST MEDICAL HISTORY: Gastroesophageal reflux disease. PAST SURGICAL HISTORY: Carpal tunnel surgery, cataract surgery, right total knee arthroplasty, bilateral shoulder arthroscopy. DAILY MEDICATIONS: 1. Pantoprazole. 2. Tamsulosin. 3. Aleve. ALLERGIES: Sulfa, penicillin. SOCIAL HISTORY: Denies tobacco use. PHYSICAL EVALUATION OF THE LEFT KNEE: Range of motion is 0 to 120 degrees. Mild effusion. Tenderness in medial joint line. Crepitance in medial and patellofemoral compartments with range of motion. Pain with patellofemoral compression. Ligaments stable. Hip rotation without pain. Distal neurovascular exam is intact. IMAGING: Left knee radiographs revealed severe osteoarthritic changes. IMPRESSION: 1. Left knee osteoarthritis. 2. Hypertension. 3. Gastroesophageal reflux disease. PLAN: Left total knee arthroplasty. MMODL / IJN: [id number] /
[~2023-06-02 08:17] MED LIST changes: +ACETAMINOPHEN TAB 500 MG TAB PO PRN; -ALBUTEROL NEB (CONC) 2.5 MG/0.5 ML INHALATION ONE; +DEXAMETHASONE SOD PHOSPHATE 4 MG/ML 1 ML VIAL IV ONE; +HYDROmorphone 0.5 MG/0.5 ML SYRINGE IVP PRN; -LIDOCAINE 2% (PF) 20 MG/ML 5 ML VIAL INHALATION ONE; -LIDOCAINE VISCOUS 300 MG/15 ML CUP MUCOUS MEM ONE; +MELOXICAM 7.5 MG TAB PO PRN; +METOCLOPRAMIDE 5 MG/ML 2 ML VIAL IVP PRN; +ONDANSETRON 4 MG/2 ML VIAL IVP ONE; +TRANEXAMIC 1,000 MG/100ML-NACL 1,000 MG in SALINE 1 100ML.BAG IVPB PRN
[2023-06-02] MEDS ORDERED: MIDAZOLAM 2 MG/2 ML VIAL IVP ONE (09:19)
[2023-06-02] MEDS ORDERED: fentaNYL (PF) 50 MCG/ML 2 ML AMP IVP ONE (09:19)
[2023-06-02] MEDS ORDERED: PHENYLEPHRINE-0.9% NACL SYG 1,000 MCG/10 ML SYRINGE ONE (09:43)
[2023-06-02] MEDS ORDERED: TRANEXAMIC 1,000 MG/100ML-NACL PREMIX BAG ONE (09:43)
[2023-06-02] MEDS ORDERED: MIDAZOLAM 2 MG/2 ML VIAL ONE (09:43)
[2023-06-02] MEDS ORDERED: ePHEDrine 50 MG/ML 1 ML VIAL ONE (09:43)
[2023-06-02] MEDS ORDERED: PROPOFOL 10 MG/ML 20 ML VIAL IV ONE (09:43)
[2023-06-02] MEDS ORDERED: ROPIVACAINE 5 MG/ML 30 ML VIAL ONE (09:43)
[2023-06-02] MEDS ORDERED: SODIUM CHLORIDE 0.9% (PF) 10 ML VIAL ONE (09:43)
[2023-06-02] MEDS ORDERED: fentaNYL (PF) 50 MCG/ML 2 ML AMP ONE (09:43)
[2023-06-02] MEDS ORDERED: ceFAZolin 1,000 MG in SODIUM CHLORIDE 0.9% 1,000 ML IRRIGATION ONE ×4 (09:48)
--- NOTE | 2023-06-02 10:30 | P.ANPRN ---
Procedure Note - Anesthesia - Nerve Block Performed Left Adductor Canal Infusion Time Out Performed: Yes (0919) Date of Procedure: 06/02/23 Procedure Start Time: Procedure Stop Time: Location of Patient: PreOp Indication: Acute Post-Operative Pain, Requested by Surgeon Specifically requested for management of pain by DrSasha: Cesar Baptiste Sedation Type: Sedate with meaningful contact maintained Preparation: Sterile Prep, Sterile Dressing Position: Supine Catheter Depth at Skin (cm): 7 Catheter: Indwelling Needle Types: Pajunk Needle Gauge: 18 Ultrasound used to visualize needle placement: Yes Ultrasound used to observe medication spread: Yes Injectate: 0.5% Ropivacaine (see comment for volume) (15cc+ 5cc nacl pf) Blood Aspirated: No Pain Paresthesia on Injection Noted: No Resistance on Injection: Normal Image Stored and Saved: Yes Events: Uneventful and Well Tolerated
--- NOTE | 2023-06-02 10:31 | P.ANPRN ---
Procedure Note - Anesthesia - Nerve Block Performed Left iPack Single Time Out Performed: Yes (0919) Date of Procedure: 06/02/23 Procedure Start Time: Procedure Stop Time: Location of Patient: PreOp Indication: Acute Post-Operative Pain, Requested by Surgeon Specifically requested for management of pain by DrSasha: Cesar Baptiste Sedation Type: Sedate with meaningful contact maintained Preparation: Sterile Prep Position: Supine Catheter: None Needle Types: Pajunk Needle Gauge: 21 Ultrasound used to visualize needle placement: Yes Ultrasound used to observe medication spread: Yes Injectate: 0.5% Ropivacaine (see comment for volume) (15cc+ 5cc nacl pf) Blood Aspirated: No Pain Paresthesia on Injection Noted: No Resistance on Injection: Normal Image Stored and Saved: Yes Events: Uneventful and Well Tolerated
[2023-06-02] MEDS ORDERED: LACTATED RINGERS 1,000 ML IV ONE (11:18)
[2023-06-02] MEDS ORDERED: HYDROcodone/APAP 5-325MG 1 EACH TAB PO PRN (11:36)
[2023-06-02] MEDS ORDERED: HYDROmorphone 0.5 MG/0.5 ML SYRINGE IVP PRN ×3 (11:36)
[2023-06-02] MEDS ORDERED: ONDANSETRON 4 MG/2 ML VIAL IVP PRN (11:36)
[2023-06-02] MEDS ORDERED: NALOXONE 0.4 MG/ML 1 ML VIAL IV PRN (11:36)
--- NOTE | 2023-06-02 11:36 | P.OP ---
Date of Procedure: 06/02/23 Preoperative Diagnosis: Left knee osteoarthritis Postoperative Diagnosis: Left knee osteoarthritis Procedure(s) Performed: Left total knee arthroplasty Implants: 1. Depuy attune size 7 left cruciate-retaining cemented femur 2. Depuy attune size 7 fixed bearing cemented tibial baseplate 3. Depuy attune size 7 fixed bearing cruciate retaining 7 mm polyethylene tibial insert 4. Depuy attune 41 mm all polyethylene cemented patella Anesthesia: regional (Adductor canal catheter, Ipack block), spinal Surgeon: Cesar Baptiste Mechanical Facilities Technician #1: Chip Blount Estimated Blood Loss (ml): 40 Pathology: none sent Condition: stable Disposition: PACU Indications for Procedure: 67-year-old gentleman seen with symptomatic left knee osteoarthritis. After having treatment options discussed, he elected to proceed with total knee ar throplasty. Operative Findings: See description of procedure Description of Procedure: Patient was taken to the operative suite after having an adductor canal catheter placed by the department of anesthesia. Patient underwent a left anesthetic by the department of anesthesia. Patient was given preoperative IV intake antibiotics and TXA. A well-padded tourniquet was placed about the left lower extremity. The lower extremity was then prepped and draped in the normal sterile orthopedic fashion. The extremity was elevated, a tourniquet was i nsufflated to 300. A standard anterior incision was made sharply through skin. Dissection was taken down through the subcutaneous soft tissues down to the extensor mechanism. A medial arthrotomy was performed, patella was everted and knee was flexed. There was advanced osteoarthritis noted. I introduced my distal intramedullary femoral drill. I then introduced the distal femoral cutting jig. Jose Antonio LAKE secured the cutting jig with 2 pins. I held retractors in position while Jose Antonio LAKE performed the distal femoral resection through the guide area we now removed her distal femoral cutting guide. We now placed our 4-in-1 femoral cutting block and positioned and it was secured with 2 pins by Jose Antonio LAKE while I held the block in position. The distal femoral finishing was now completed. A proximal tibial cutting guide was positioned. I held the guide in the appropriate position with both hands well Jose Antonio LAKE inserted stabilizing pins into the guide. Proximal tibial cut was made. We now placed a trial femoral component into position, along with an appropriate size tibial tray and insert. We now took the knee through range of motion and had full extension good flexion and good overall soft tissue balance noted. The patella was everted and stabilized with 2 towel clips held by Jose Antonio LAKE while I performed a flush with patellar quad tendon utilizing a fresh sawblade. We templated the patella, appropriate drill holes were made. An appropriate trial patella was positioned, knee was taken through full range of motion with the patella tracking very nicely. The trial patella was removed. Drill holes were made through the femoral component. All trial components were removed after marking off the appropriate rotation of the tibia. Retractors wer e now positioned along the proximal tibia. An appropriate keel punch was made with the appropriate size tibial guide by myself on Jose Antonio LAKE assisted by holding retractors. At this point appropriate size implants were chosen and opened. The joint was irrigated copiously with pulse lavage mechanical irrigation. The wound was irrigated with pulse lavage mechanical irrigation. We mixed antibiotic methylmethacrylate. We placed the knee into flexion. We placed multiple retractors assisted by Jose Antonio LAKE to expose the proximal tibia. Once the methyl methacrylate was ready, the tibial component was cemented into place removing any excess methylmethacrylate form by both myself and Jose Antonio LAKE. The femoral component was cemented into place removing the removing any excess methylmethacrylate performed by both myself and Jose Antonio LAKE. We then inserted the appropriate size polyethylene tibial insert. We made sure that it was locked into position. We took the knee into full extension, and then back in a flexion making sure we had removed any excess methylmethacrylate. The patellar component was then cemented down and secured with clamp. Excess methylmethacrylate removed. We kept the knee in full extension, patellar clamp in position until methylmethacrylate had hardened. Once it had hardened the patellar clamp was removed. The knee was taken through full range of motion. The patella tracked nicely. There was good soft tissue balancing. The tourniquet was now released. Additional hemostasis was achieved via electrocautery. A second gram of TXA was given. The wound again was irrigated with pulse lavage mechanical irrigation. The extensor mechanism was repaired with Ethibond suture. We checked the repair with range of motion and it was stable. The subcutaneous soft tissues were repaired with Vicryl in layers. The skin was approximated with pernio/Dermabond. Sterile dressings were applied followed by loose web roll and Rodrigue bandage. The patient was transferred to a bed, and taken to recovery in stable and satisfactory condition. Jose Antonio LAKE assisted with this complex procedure.
[2023-06-02] MEDS ORDERED: ROPIVACAINE 0.2%-NS ON-Q PUMP 2 MG/ML EACH MISCELLANE ONE (12:36)
--- NOTE | 2023-06-02 12:43 | XR ---
EXAMINATION TYPE: XR knee limited LT DATE OF EXAM: 06/02/2023 12:39 PM INDICATION: Patient age:Male; 67 years old; Reason for study: Evaluation for Postop abnormality and alignment; [facility]. COMPARISON: Left knee radiograph 04/08/2023 TECHNIQUE: The Left knee(s) was examined in frontal and crosstable lateral projections. FINDINGS: Postsurgical changes from left knee arthroplasty with distal femoral and proximal tibial components. Hardware appears intact with appropriate alignment. There is associated soft tissue gas a nd edema. No acute fracture or dislocation. IMPRESSION: Postsurgical changes from left knee arthroplasty. Hardware appears intact with appropriate alignment.
[2023-06-02] MEDS: HYDROcodone/APAP 7.5-325MG 1 EACH TAB PO PRN ×2 (16:04→22:20)
[2023-06-02] MEDS: LACTATED RINGERS 1,000 ML IV SCH ×2 (16:04→20:31)
[2023-06-02 16:34] VITALS: RESP 18
[2023-06-02] MEDS ORDERED: LORATADINE 10 MG TAB PO PRN (19:57)
[2023-06-02] MEDS: TAMSULOSIN 0.4 MG CAP.ER.24H PO SCH (20:29)
[2023-06-02] MEDS: PANTOPRAZOLE 40 MG TABLET PO SCH (20:29)
[2023-06-02] MEDS ORDERED: SENNOSIDES-DOCUSATE SODIUM 1 EACH TAB PO SCH (21:00)
[2023-06-03] MEDS: HYDROcodone/APAP 7.5-325MG 1 EACH TAB PO PRN ×2 (05:50→11:38)
--- NOTE | 2023-06-03 07:11 | P.PN ---
Progress Note - Text Progress Note Date: 06/03/23 (2746) Anesthesiology Postop day 1 status post total knee arthroplasty with adductor canal catheter. Patient doing well. VAS 4 out of 10. Gross strength intact in lower extremity. Afebrile. Denies alterations in sensorium. Catheter site intact. Heart regular rate Lungs nonlabored Abdomen nondistended Assessment: Postop day 1 status post total knee arthroplasty with adductor canal catheter Plan: 1.All questions answered. Maintain catheter 2 more days with patient removal at home. Instructions to be given at discharge. 2.This note was dictated using [employer] software. Please be advised there is a potential for misspellings or errors in supervisor sawmill.
[2023-06-03] MEDS ORDERED: LOSARTAN 25 MG TAB PO SCH (09:00)
[2023-06-03] MEDS ORDERED: LACTOBACILLUS ACIDOPHILUS/PECT 1 EACH CAPSULE PO SCH (09:00)
[2023-06-03] MEDS ORDERED: CHOLECALCIFEROL 125 MCG (5000 IU) TABLET PO SCH (09:00)
[2023-06-03] MEDS ORDERED: CYANOCOBALAMIN 500 MCG TAB PO SCH (09:00)
[2023-06-03] MEDS ORDERED: ATORVASTATIN 20 MG TAB PO SCH (09:00)
[2023-06-03] MEDS ORDERED: ENOXAPARIN 30 MG/0.3 ML SYRINGE SQ SCH (09:00)
[2023-06-03] MEDS ORDERED: MULTIVITAMINS, THERA 1 EACH TAB PO SCH ×2 (09:00→12:00)
[2023-06-03] MEDS: LACTATED RINGERS 1,000 ML IV SCH (09:10)
[2023-06-03] MEDS: PANTOPRAZOLE 40 MG TABLET PO SCH (09:14)
[2023-06-03] MEDS: TAMSULOSIN 0.4 MG CAP.ER.24H PO SCH (09:14)
[2023-06-03 09:31] VITALS: BP 142/80; PULSE 83; TEMP 97.7
[2023-06-03 11:06] LABS: HCT 41.1 % (39.6-50.0); HGB 13.4 d/dL (13.0-17.0); MCH 29.7 pg (27.0-32.0); MCHC 32.6 d/dL (32.0-37.0); MCV 91.1 FL (80.0-97.0); Mean Platelet Volume 10.5 FL (9.5-12.2); NRBC Per 100 WBC 0 X 10*3/uL (0.00-0.01); Platelet Count 263 X 10*3/uL (140-440); RBC 4.51 X 10*6/uL (4.40-5.60); RDW 13.1 % (11.5-14.5); WBC 12.69 X 10*3/uL (4.50-10.00)
[2023-06-03 11:14] LABS: BUN/Creat Ratio 17.89 Ratio (12.00-20.00); Blood Urea Nitrogen 16.1 mg/dL (9.0-27.0); Calcium 9.2 mg/dL (8.7-10.3); Carbon Dioxide 25.8 mmol/L (21.6-31.8); Chloride 105 mmol/L (96-109); Glucose 97 mg/dL (70-110); Magnesium 1.8 mg/dL (1.5-2.4); Potassium 4.5 mmol/L (3.5-5.5); Sodium 142 mmol/L (135-145)
--- NOTE | 2023-06-03 11:37 | P.PN ---
Subjective Progress Note Date: 06/03/23 Principal diagnosis: Status post left total knee arthroplasty Patient was evaluated today at bedside, he is resting in his hospital bed. Patient has been up and ambulating with no difficulty, he is urinating with no issues. He is hoping to work with physical therapy shortly. Patient did use some IV pain medication early this morning, he was having a very difficult time sleeping. He denies headaches, lightheadedness, chest pain or shortness of breath Objective - Vital Signs Vital signs: Vital Signs Temp 97.7 F 06/03/23 07:25 Pulse 83 06/03/23 07:25 Resp 18 06/03/23 07:25 BP 142/80 06/03/23 07:25 Pulse Ox 93 L 06/03/23 07:25 FiO2 Intake & Output 06/02/23 06/03/23 06/03/23 18:59 06:59 18:59 Intake Total 1831 Output Total 190 Balance 1641 Weight 97.7 kg Intake: IV 1351 Oral 480 Output: Urine 150 Estimated Blood Loss 40 Other: Voiding Method Toilet # Voids 3 2 - Exam Left lower extremity: Incision is clean, dry, and intact. The foam dressing is in good condition. There is minimal soft tissue swelling and ecchymosis surrounding the medial and lateral aspects of the incision. Calf is soft, no tenderness with palpation. Plantar flexion, dorsiflexion, EHL, FHL are intact. Sensory exam to light touch throughout the extremity is intact, dorsal pedis pulses 2+. - Labs CBC & Chem 7: 06/03/23 06:44 06/03/23 06:44 Labs: Abnormal Lab Results - Last 24 Hours (Table) 06/03/23 Range/Units 06:44 WBC 12.69 H (4.50-10.00) X 10*3/uL Assessment and Plan Assessment: Postoperative day #1 status post left total knee arthroplasty Plan: Pain control, continue current medication DVT prophylaxis, continue subcu medication during hospital stay Wound care instructions were discussed, this to include icing and elevating along with showering instructions PT/OT, weight-bear as tolerated with walker Encourage incentive spirometer Medical recommendations Discharge planning: We'll reassess patient later this afternoon, hopeful discharge home with home care Time with Patient: Less than 30
[2023-06-03 11:46] LABS: Basophils # (A) 0.03 X 10*3/uL (0.00-0.10); Basophils % (A) 0.2 %; Eosinophils # (A) 0.08 X 10*3/uL (0.04-0.35); Eosinophils % (A) 0.6 %; Lymphocytes # (A) 2.25 X 10*3/uL (0.90-5.00); Lymphocytes % (A) 17.7 %; Monocytes # (A) 1.57 X 10*3/uL (0.20-1.00); Monocytes % (A) 12.4 %; Neutrophils # (A) 8.72 X 10*3/uL (1.80-7.70); Neutrophils % (A) 68.8 %; RBC Morphology Normal (Normal)
--- NOTE | 2023-06-03 12:51 | P.CONS ---
History of Present Illness - Reason for Consult Consult date: 06/03/23 - Chief Complaint Status post surgery medical management - History of Present Illness * 67-year-old gentleman with past medical history significant for hypertension, BPH, gastroesophageal reflux disease, thoracic aortic aneurysm was admitted for left knee osteoarthritis symptomatic management. Patient underwent left total knee arthroplasty. * Postprocedure internal medicine team has been consulted for medical management. With chart review patient does have history of right total knee arthroplasty, carpal tunnel and cataract surgery. * he is seen postoperative day one. Home medications reviewed and reconciled * Per chart review, hematology showed WBC of 12, hemoglobin within normal limits serum chemistry within normal limits * Postoperatively patient appears stable denies of any acute issues including fever, chills, chest pain, nausea, vomiting, diarrhea REVIEW OF SYSTEMS: CONSTITUTIONAL: No fever, no malaise, no fatigue. HEENT: No recent visual problems or hearing problems. Denied any sore throat. CARDIOVASCULAR: No chest pain, orthopnea, PND, no palpitations, no syncope. PULMONARY: No shortness of breath, no cough, no hemoptysis. GASTROINTESTINAL: No diarrhea, no nausea, no vomiting, no abdominal pain. NEUROLOGICAL: No headaches, no weakness, no numbness. HEMATOLOGICAL: Denies any bleeding or petechiae. GENITOURINARY: Denies any burning micturition, frequency, or urgency. MUSCULOSKELETAL/RHEUMATOLOGICAL: Left knee discomfort, range of motion limited ENDOCRINE: Denies any polyuria or polydipsia. PHYSICAL EXAMINATION: GENERAL: The patient is alert and oriented x3, not in any acute distress. Well developed, well nourished. HEENT: Pupils are round and equally reacting to light. EOMI. No scleral icterus. No conjunctival pallor. Normocephalic, atraumatic. No pharyngeal erythema. No thyromegaly. CARDIOVASCULAR: S1 and S2 present. No murmurs, rubs, or gallops. PULMONARY: Chest is clear to auscultation, no wheezing or crackles. ABDOMEN: Soft, nontender, nondistended, normoactive bowel sounds. No palpable organomegaly. MUSCULOSKELETAL: Status post left knee surgery, wound bandaged EXTREMITIES: No cyanosis, clubbing, or pedal edema. NEUROLOGICAL: Gross neurological examination did not reveal any focal deficits. SKIN: No rashes. 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 SLOW TO COME OUT OF ANESTHESIA Past Psychological History: No Psychological Hx Reported Smoking Status: Former smoker Past Alcohol Use History: None Reported Additional Past Alcohol Use History / Comment(s): QUIT SMOKING 27 YEARS AGO Past Drug Use History: None Reported - Past Family History Father Family Medical History: Cancer Mother Family Medical History: Cancer Daughter(s) Family Medical History: Cancer Additional Family Medical History / Comment(s): thyroid Medications and Allergies Home Medications Medication Instructions Recorded Confirmed Type Tamsulosin [Flomax] 0.4 mg PO BID 03/02/16 05/26/23 History Pantoprazole Sodium 40 mg PO BID 05/08/18 05/26/23 History Demetra Gross B.lactis 1 each PO DAILY 07/03/18 05/26/23 History [Probiotic] Cholecalciferol (Vitamin D3) 125 mcg PO DAILY 04/04/21 05/26/23 History [Vitamin D3 (125 MCG = 5,000 IU)] Cyanocobalamin [Vitamin B-12] 500 mcg PO DAILY 05/26/23 05/26/23 History Loratadine [Claritin] 10 mg PO DAILY PRN 05/26/23 05/26/23 History Losartan [Cozaar] 12.5 mg PO DAILY 05/26/23 05/26/23 History Multivitamins, Thera [Multivitamin 1 tab PO DAILY 05/26/23 05/26/23 History (formulary)] Rosuvastatin [Crestor] 10 mg PO DAILY 05/26/23 05/26/23 History Aspirin [Adult Low Dose Aspirin EC] 81 mg PO BID #60 tab 06/03/23 Rx HYDROcodone/APAP 7.5-325MG [[place] 1 each PO Q4HR PRN #42 tab 06/03/23 Rx 7.5] Sennosides/Docusate Sodium 2 each PO DAILY PRN #30 tablet 06/03/23 Rx [Senna-S 8.6-50 mg Tablet] Allergies Allergy/AdvReac Type Severity Reaction Status Date / Time Penicillins AdvReac ITCHING Verified 06/02/23 08:38 AND RASH Sulfa (Sulfonamide AdvReac ITCHING Verified 06/02/23 08:38 Antibiotics) AND RASH Physical Exam Vitals: Vital Signs Temp Pulse Pulse Pulse Pulse Resp BP 06/03/23 07:25 97.7 F 83 18 06/03/23 02:03 97.4 F L 80 18 06/02/23 19:55 97.8 F 95 18 06/02/23 16:45 06/02/23 15:22 97.9 F 110 H 18 06/02/23 14:30 73 16 06/02/23 14:00 77 16 06/02/23 13:15 82 16 06/02/23 13:00 75 16 127/79 06/02/23 12:45 77 16 127/75 06/02/23 12:30 70 16 108/63 06/02/23 12:15 69 16 100/66 06/02/23 12:00 75 14 108/66 06/02/23 11:50 97.2 F L 90 14 112/73 BP Pulse Ox 06/03/23 07:25 142/80 93 L 06/03/23 02:03 119/71 92 L 06/02/23 19:55 109/63 95 06/02/23 16:45 95 06/02/23 15:22 144/88 93 L 06/02/23 14:30 123/67 99 06/02/23 14:00 119/67 99 06/02/23 13:15 127/71 97 06/02/23 13:00 99 06/02/23 12:45 99 06/02/23 12:30 99 06/02/23 12:15 93 L 06/02/23 12:00 98 06/02/23 11:50 93 L Intake and Output 06/02/23 06/03/23 06/03/23 22:59 06:59 14:59 Intake Total 480 Output Total 150 Balance 330 Intake: Oral 480 Output: Urine 150 Other: Voiding Method Toilet # Voids 3 2 Results CBC & Chem 7: 06/03/23 06:44 06/03/23 06:44 Assessment and Plan Assessment: Assessment and plan Status post left knee arthroplasty History of thoracic aortic aneurysm History of BPH Gastroesophageal reflux disease * Continue postoperative management, pain control, DVT prophylaxis per primary team. Patient is on Lovenox for DVT prophylaxis * In regards to BPH continue Flomax * In regards to history of thoracic aortic aneurysm patient is on Cozaar eunice nue while inpatient * In regards to gastroesophageal reflux disease continue Protonix * Will need physical therapy occupational therapy evaluation
--- NOTE | 2023-06-03 14:44 | P.DS ---
Providers Date of admission: 06/02/2023 Expected date of discharge: 06/03/23 Attending physician: Cesar Baptiste Consults: 06/02/23 17:09 Consult Physician Routine Consulting Provider: Kostas Regalado Consult Reason/Comments: medical management Do you want consulting provider notified?: Yes Primary care physician: [facility] Course: Date of admission: 06/02/2023 Date of discharge: 06/03/2023 Admission diagnosis: Status post left total knee arthroplasty Discharge diagnosis: Same Attending physician: Dr. Baptiste Surgical procedures: Left total knee arthroplasty Brief history: Patient is a 67-year-old male with a history of progressive primary left knee osteoarthritis. At this point patient has failed conservative treatment measures and has opted to proceed with a elective left total knee arthroplasty. Hospital course: Details of patient's surgery can be found in operative report. Patient tolerated the procedure well and was subsequently transported to orthopedic floor. Patient's orthopeidc and medical care was provided daily. Patient had daily laboratory tests performed for evaluation of overall blood counts. Patient had daily physical therapy to include strengthening range of motion as well as education with walker ambulation. Patient was treated with Lovenox for their postoperative DVT prophylaxis during their inpatient stay. Patient was noted to have a relatively uneventful postoperative course. Patient reported satisfactory pain control with oral pain medications by postoperative day 0. Patient showed satisfactory progress with physical therapy. Patient moved steadily through the program and had no difficulty meeting the goals by postoperative day 1. Given patient's otherwise satisfactory course and having met physical therapy goals, plan is to discharge patient home on postoperative day 1. Discharge condition/disposition: Patient will be discharged home in stable condition. Discharge medications: Instructions are given on resumption of patient's normal daily medications per primary care recommendation, in addition patient will be prescribed [place] 7.5 mg/325 mg, senna S, aspirin 81. Discharge instructions: 1. Wound care and infection precautions, keep incision dry and covered while showering, no lotions, creams, moisturizers. No soaking, tubs, pools, hottubs. Do not scrub over the incision. 2. Weight-bear as tolerated with walker / cane until follow-up. 3. Ice and elevate when necessary. Do not exceed 20 minutes per hour with ice pack. 4. Utilize compression sleeve until seen at first follow up appointment. 5. Visiting nursing care. 6. Home physical therapy including home CPM. 7. Pain meds and anticoagulants per prescription. 8. Pain medication has potential to cause constipation. Increase oral fluid and fiber intake. Contact primary care provider if you have not had a bowel movement within 48 hours after discharge 9. No anti-inflammatory medication until discussed at first post operative visit, this including Motrin, Aleve, Mobic, Diclofenac. 10. Follow up in office at 2 weeks postop with Jose Antonio Blount PA-C/Jae Menendez 11. Follow up with your primary care doctor 7-10 days after discharge. 12. Contact [facility] with any questions, . Procedures: Left total knee arthroplasty Patient Condition at Discharge: Good Plan - Discharge Summary Discharge Rx Participant: Yes New Discharge Prescriptions: New Aspirin [Adult Low Dose Aspirin EC] 81 mg PO BID #60 tab HYDROcodone/APAP 7.5-325MG [[place] 7.5] 1 each PO Q4HR PRN #42 tab PRN Reason: Pain Sennosides/Docusate Sodium [Senna-S 8.6-50 mg Tablet] 2 each PO DAILY PRN #30 tablet PRN Reason: Constipation No Action Tamsulosin [Flomax] 0.4 mg PO BID Pantoprazole Sodium 40 mg PO BID L.acidoph,Paracasei, B.lactis [Probiotic] 1 each PO DAILY Cholecalciferol (Vitamin D3) [Vitamin D3 (125 MCG = 5,000 IU)] 125 mcg PO DAILY Loratadine [Claritin] 10 mg PO DAILY PRN PRN Reason: Allergy Symptoms Losartan [Cozaar] 12.5 mg PO DAILY Cyanocobalamin [Vitamin B-12] 500 mcg PO DAILY Multivitamins, Thera [Multivitamin (formulary)] 1 tab PO DAILY Rosuvastatin [Crestor] 10 mg PO DAILY Discharge Medication List Tamsulosin [Flomax] 0.4 mg PO BID 03/02/16 [History] Pantoprazole Sodium 40 mg PO BID 05/08/18 [History] L.acidoph,Paracasei, B.lactis [Probiotic] 1 each PO DAILY 07/03/18 [History] Cholecalciferol (Vitamin D3) [Vitamin D3 (125 MCG = 5,000 IU)] 125 mcg PO DAILY 04/04/21 [History] Cyanocobalamin [Vitamin B-12] 500 mcg PO DAILY 05/26/23 [History] Loratadine [Claritin] 10 mg PO DAILY PRN 05/26/23 [History] Losartan [Cozaar] 12.5 mg PO DAILY 05/26/23 [History] Multivitamins, Thera [Multivitamin (formulary)] 1 tab PO DAILY 05/26/23 [History] Rosuvastatin [Crestor] 10 mg PO DAILY 05/26/23 [History] Aspirin [Adult Low Dose Aspirin EC] 81 mg PO BID #60 tab 06/03/23 [Rx] HYDROcodone/APAP 7.5-325MG [[place] 7.5] 1 each PO Q4HR PRN #42 tab 06/03/23 [Rx] Sennosides/Docusate Sodium [Senna-S 8.6-50 mg Tablet] 2 each PO DAILY PRN #30 tablet 06/03/23 [Rx] Follow up Appointment(s)/Referral(s): [facility] [NON-STAFF] - As Needed (Continuous Passive Motion knee machine) [facility], [NON-STAFF] - As Needed Chip Blount PAC [PHYSICIAN MEDIA PROFESSIONAL] - 2 Weeks Patient Instructions/Handouts: *Surgery [facility] - On-Q Pain Pump Discharge Instructions, Knee Arthroscopy (DC) Activity/Diet/Wound Care/Special Instructions: Orthopedic Discharge Instructions: 1. Wound care and infection precautions, keep incision dry and covered while showering, no lotions, creams, moisturizers. No soaking, pools, hot tubs. Do not scrub over incision. 2. Weight-bear as tolerated with walker / cane until follow-up. 3. Ice and elevate when necessary. Do not exceed 20 minutes per hour with ice pack. 4. Utilize compression sleeve until seen at first follow up appointment. 5. Pain meds and anticoagulants per prescription. 6. Pain medication has potential to cause constipation. Increase oral fluid and fiber intake. Contact primary care provider if you have not had a bowel movement within 48 hours after discharge. 7. No anti-inflammatory medication until discussed at first post operative visit, this including Motrin, Aleve, Mobic, Diclofenac. 8. Follow up in office at 2 weeks postop with Jose Antonio Blount PA-C/Jae Gloria PA-C 9. Follow up with your primary care doctor 7-10 days after discharge. 10. Contact [facility] with any questions, . Wound care instructions: 1. Okay to remove surgical dressing is a 06/09/2023 2. Okay to shower directly over the incision after removal of bandage Discharge Disposition: HOME WITH HOME HEALTH SERVICES
== END 2023-06-03 14:37 | disposition home health service (06) ==
LOC: OR 08:17 → 4SSUR 11:50 → OR 06-03 14:37
PROVIDERS: ATTEND Orthopaedic Surgery
DX: M17.12 Unilateral primary osteoarthritis, left knee (principal); K21.9 Gastro-esophageal reflux disease without esophagitis; I10 Essential (primary) hypertension; N40.0 Benign prostatic hyperplasia without lower urinary tract symptoms; J44.9 Chronic obstructive pulmonary disease, unspecified; E78.5 Hyperlipidemia, unspecified; Z88.2 Allergy status to sulfonamides; Z88.0 Allergy status to penicillin; Z96.651 Presence of right artificial knee joint; Z85.828 Personal history of other malignant neoplasm of skin; Z87.891 Personal history of nicotine dependence; Z79.82 Long term (current) use of aspirin; Z79.899 Other long term (current) drug therapy
CPT/HCPCS: 27447; 94760; 97161; 64999; 64448; 80048; 83735; 85025; 73560; C1776; C1713 ×2; C1751; J2250; J1100; J0690 ×3; J2405; J3010; J1650; J2795 ×2; J2704; J1170; J2371

== ENCOUNTER → 2024-01-30 | Outpatient (CLI) | payer MEDICARE ==
[2024-01-30 08:59] LABS: African American GFR (CKD) >90 (>60 ml/min/1.73 sqM); Blood Urea Nitrogen 14 mg/dL (9-20); Non-African American GFR(CKD) >90 (>60 ml/min/1.73 sqM)
--- NOTE | 2024-01-30 20:06 | CT ---
EXAMINATION TYPE: CT chest w con CT DLP: 543 mGycm, Automated exposure control for dose reduction was used. DATE OF EXAM: 01/30/2024 9:18 AM COMPARISON: Plain film 09/22/2023, 02/14/2023 CLINICAL INDICATION:Male, 68 years old with history of R91.1 SOLITARY PULMONARY NODULE; PHH, pulmonar y nodule TECHNIQUE: Multiple axial images were obtained through the chest. Sagittal and coronal reformats were created for review. Contrast used:100 mL of Isovue 300 with IV Contrast (None if empty) Oral contrast used: (None if empty) FINDINGS: LUNGS/ PLEURA: Centrilobular and paraseptal emphysema changes. Scattered peripheral reticular and pro minent interstitial lung markings. Nodular-like change in the right middle lobe seen on prior is not significantly changed may represent scarring. AIRWAY: Patent and unremarkable. HEART: The heart is mildly increased in size.Mild coronary artery calcifications. MEDIASTINUM: No gross evidence of adenopathy. VASCULATURE: No aortic aneurysm. MUSCULOSKELETAL: No acute osseous abnormalities, multiple left-sided remote injuries. Multilevel dege neration changes throughout the spine. SOFT TISSUES/LYMPH NODES: Unremarkable. LOWER NECK: No significant findings. UPPER ABDOMEN: Scattered simple appearing renal cysts IMPRESSION: 1. No new or enlarging pulmonary nodules.Consider yearly low-dose lung cancer screening. 2. [id number] emphysema.
== END | disposition home or self-care (01) ==
LOC: RADCTMAIN 08:26
PROVIDERS: ATTEND Internal Medicine
DX: J43.9 Emphysema, unspecified (principal); R91.1 Solitary pulmonary nodule
CPT/HCPCS: 82565; 84520; 71260; 36415; Q9967

== ENCOUNTER → 2024-06-01 | Outpatient (CLI) | payer MEDICARE ==
[2024-06-01 10:39] LABS: African American GFR (CKD) >90 (>60 ml/min/1.73 sqM); Blood Urea Nitrogen 16 mg/dL (9-20); Non-African American GFR(CKD) 88 (>60 ml/min/1.73 sqM)
--- NOTE | 2024-06-01 12:22 | CT ---
EXAMINATION TYPE: CT angio chest CT DLP: 783 mGycm, Automated exposure control for dose reduction was used. DATE OF EXAM: 06/01/2024 11:31 AM COMPARISON: CT chest 01/30/2024, 02/14/2023, 02/26/2022 CLINICAL INDICATION:Male, 68 years old with history of I25.84 ATHEROSCLEROSIS; Aortic aneurysm, ather osclerosis TECHNIQUE/CONTRAST: CTA scan of the thorax is performed without and with IV Contrast, patient injected with 100 ml mL of Isovue 370. MIP images are created and reviewed. FINDINGS: Lungs/Pleura: No evidence of focal consolidation, pleural effusion or pneumothorax. Initiation of silvia trilobular and paraseptal emphysematous changes. Scattered peripheral reticular prominent interstitia l lung markings are similar. Diffuse bronchiectasis redemonstrated. Airway: Large airways are patent. Heart: Mildly enlarged. No pericardial effusion. Moderate coronary arterial calcifications. Vasculature: No evidence for intramural hematoma or dissection. Stable aneurysmal dilatation of the a ortic root measuring up to 4.3 cm, previously 4.4 cm. Ectatic ascending aorta is stable measuring up to 3.8 cm, previously 3.7 cm. Conventional arch vessel branching anatomy. The descending thoracic aor ta is normal in caliber measuring up to 2.9 cm. No evidence of pulmonary embolism. Mild prominence of the right pulmonary artery. Mediastinum: No evidence of adenopathy. Musculoskeletal: No acute osseous abnormalities. Surgical intervention with surgical anchor involving the right scapula. Mild multilevel degenerative disc disease. Soft Tissues: Unremarkable. Lower neck: No significant findings. Upper Abdomen: Multiple hepatic cysts redemonstrated. Small to moderate-sized hiatal hernia redemonst rated. IMPRESSION: 1. Stable 4.3 cm aneurysm dilatation of the aortic root. No evidence for intraparenchymal hematoma or dissection. 2. Similar COPD with moderate emphysematous changes and superimposed interstitial fibrosis, possible NSIP or other chronic interstitial lung disease. 3. Small to moderate size hiatal hernia redemonstrated. [facility], , 06/01/2024 12:19 PM
[2024-06-01 15:30] LABS: Chol/HDL Ratio 2.01 Ratio; LDL Cholesterol,Calculated 45.5 mg/dL (0.0-131.0); VLDL Calculation 10.44 mg/dL (5.00-40.00)
== END | disposition home or self-care (01) ==
LOC: RADCTMAIN 09:37
PROVIDERS: ATTEND Student in an Organized Health Care Education/Training Program
DX: I25.84 Coronary atherosclerosis due to calcified coronary lesion
CPT/HCPCS: 36415; 71275; 80061; 82565; 84520

== ENCOUNTER → 2024-07-16 | Outpatient (CLI) | payer MEDICARE ==
--- NOTE | 2024-07-16 09:39 | XR ---
EXAMINATION TYPE: XR abdomen 1V DATE OF EXAM: 07/16/2024 9:33 AM COMPARISON: None. CLINICAL INDICATION: Male, 69 years old with history of R10.32 LEFT ABD PAIN, TECHNIQUE: Single view of the abdomen. FINDINGS: Small bowel demonstrates no evidence for dilatation or air fluid levels. Gas and fecal material is seen in non-distended colon. No convincing evidence for pneumoperitoneum. No unusual calcifications. The lung bases are clear. The osseous structures are intact. IMPRESSION: 1. Overall nonobstructive bowel gas pattern. [facility], , 07/16/2024 9:37 AM
== END | disposition home or self-care (01) ==
LOC: RADXRMAIN 09:16
PROVIDERS: ATTEND Family Medicine
DX: R14.0 Abdominal distension (gaseous) (principal)
CPT/HCPCS: 74018

== ENCOUNTER 2024-11-28 23:01 | Emergency (ER) | payer MEDICARE ==
[2024-11-28 23:07] VITALS: TEMP 97.6
--- NOTE | 2024-11-28 23:38 | ED ---
General Adult HPI - General Chief complaint: Chest Pain Stated complaint: R Side Chest/Ribs/Upper Back Pain Time Seen by Provider: 11/28/24 23:08 Source: patient Mode of arrival: ambulatory Limitations: no limitations - History of Present Illness Initial comments: 69-year-old gentleman past medical history aortic aneurysm presenting today for right sided chest pain. Patient states about 2 weeks ago he leaned down to pick something up at work , leaning over a table and has been having discomfort along the right side of his chest ever since. Since then he has had dull pain in that area however this evening had sudden worsening of his pain upon bending forward and heard a "pop". Pain is described as sharp and radiates to his right shoulder blade. It is in the same location he has been having pain for the last 2 weeks. No pain medications prior to arrival. Pain worsens with deep breathing. He denies hemoptysis, difficulty in breathing, additional chest pain, lightheadedness or dizziness, numbness or weakness, fevers, abdominal pain, nausea or vomiting, diaphoresis. No history ACS or prior strokes. He is not on blood thinners. Does have history of emphysema - Related Data Home Medications Medication Instructions Recorded Confirmed Tamsulosin [Flomax] 0.4 mg PO BID 03/02/16 05/26/23 Pantoprazole Sodium 40 mg PO BID 05/08/18 05/26/23 LSashaacidoph,Mio Mccrary.lactis 1 each PO DAILY 07/03/18 05/26/23 [Probiotic] Cholecalciferol (Vitamin D3) 125 mcg PO DAILY 04/04/21 05/26/23 [Vitamin D3 (125 MCG = 5,000 IU)] Cyanocobalamin [Vitamin B-12] 500 mcg PO DAILY 05/26/23 05/26/23 Loratadine [Claritin] 10 mg PO DAILY PRN 05/26/23 05/26/23 Losartan [Cozaar] 12.5 mg PO DAILY 05/26/23 05/26/23 Multivitamins, Thera [Multivitamin 1 tab PO DAILY 05/26/23 05/26/23 (formulary)] Rosuvastatin [Crestor] 10 mg PO DAILY 05/26/23 05/26/23 Previous Rx's Medication Instructions Recorded Aspirin [Adult Low Dose Aspirin EC] 81 mg PO BID #60 tab 06/03/23 HYDROcodone/APAP 7.5-325MG [Dawson 1 each PO Q4HR PRN #42 tab 06/03/23 7.5] Sennosides/Docusate Sodium 2 each PO DAILY PRN #30 tablet 06/03/23 [Senna-S 8.6-50 mg Tablet] Cyclobenzaprine [Flexeril] 10 mg PO TID #20 tab 11/29/24 Allergies Allergy/AdvReac Type Severity Reaction Status Date / Time Penicillins AdvReac ITCHING Verified 11/28/24 23:06 AND RASH Sulfa (Sulfonamide AdvReac ITCHING Verified 11/28/24 23:06 Antibiotics) AND RASH Review of Systems ROS Statement: Those systems with pertinent positive or pertinent negative responses have been documented in the HPI. ROS Other: All systems not noted in ROS Statement are negative. Past Medical History Past Medical History: Cancer, GERD/Reflux, Osteoarthritis (OA), Prostate Disorder Additional Past Medical History / Comment(s): hx of squamous cell skin ca; AAA History of Any Multi-Drug Resistant Organisms: None Reported Past Surgical History: Joint Replacement, Orthopedic Surgery Additional Past Surgical History / Comment(s): rt knee replacedment, skin lesions removed, RT KNEE SCOPE X 2, BILAT CTR, BILAT CATARACT, RT SHOULDER REPAIR, COLONOSCOPY, RT FOOT BONE SPUR REMOVED, LT FOOT SX, LT ROTATOR CUFF REPAIR Past Anesthesia/Blood Transfusion Reactions: Family History of Problems w/ Anesthesia Additional Past Anesthesia/Blood Transfusion Reaction / Comment(s): FAMILY HX PONV WITH ANESTHESIA. SLOW TO COME OUT OF ANESTHESIA Past Psychological History: No Psychological Hx Reported Smoking Status: Former smoker Past Alcohol Use History: None Reported Past Drug Use History: None Reported - Past Family History Father Family Medical History: Cancer Mother Family Medical History: Cancer Daughter(s) Family Medical History: Cancer Additional Family Medical History / Comment(s): thyroid General Exam - General Exam Comments Initial Comments: PE: CONSTITUTIONAL: No apparent distress, well appearing SKIN: Warm, dry, no jaundice, hives or petechiae EYES: Pupils are equally round, extraocular movements intact without nystagmus, clear conjunctiva, non-icteric sclera HENT: Normocephalic, atraumatic, moist mucus membranes, oropharynx clear without exudates NECK: , Full range of motion, normal appearance PULMONARY: Clear to auscultation without wheezes, rhonchi, or rales, normal excursion, no accessory muscle use and no stridor CARDIOVASCULAR: Regular rate, rhythm, normal S1 and S2. No appreciated murmurs, rubs or gallops. Strong and equal 2+ radial pulses with intact distal perfusion. No lower extremity edema GASTROINTESTINAL: Soft, active bowel sounds throughout, non-tender, non- distended, no palpable masses, no rebound or guarding. No hepatosplenomegaly GENITOURINARY: MUSCULOSKELETAL: Extremities have no gross deformity, no edema, redness, or swelling. No calf swelling NEUROLOGIC:_a/o x 3, GCS 15, normal mentation and speech. Moves all extremities x 4 without motor or sensory deficit PSYCHIATRIC:_normal mood and affect, thought process is clear and linear Limitations: no limitations Course Vital Signs 11/28/24 11/28/24 11/29/24 23:02 23:10 00:30 Temperature 97.6 F Pulse Rate 70 62 Pulse Rate [ 64 Bilateral Sitting Chip Bin Operator] Respiratory 20 18 Rate Blood Pressure 158/95 137/88 O2 Sat by Pulse 92 L 95 Oximetry 11/29/24 11/29/24 01:21 02:20 Temperature Pulse Rate 80 75 Pulse Rate [ Bilateral Sitting Chip Bin Operator] Respiratory 18 18 Rate Blood Pressure 138/82 132/76 O2 Sat by Pulse 95 95 Oximetry EKG Findings - EKG Comments: EKG Findings:: Sinus rhythm with occasional VPC, rate 69 bpm KS interval 174 ms QT/QTc 388/407 ms, left axis deviation, T wave inversion lead III, no ST elevations or depressions, no arrhythmia, noSTEMI , no prior for comparisn Medical Decision Making - Medical Decision Making Was pt. sent in by a medical professional or institution (, PA, MATH INTERVENTIONIST, urgent care, hospital, or [facility]...) When possible be specific @ -No Did you speak to anyone other than the patient for history (EMS, parent, family, police, friend...)? What history was obtained from this source @ -No Did you review nursing and triage notes (agree or disagree)? Why? @ -I reviewed nursing and triage notes- disagree with portion of note that states pt has "AAA"-upon further chart review pt has history of thoracic aortic aneurysm Were old charts reviewed (outside hosp., previous admission, EMS record, old EKG, old radiological studies, urgent care reports/EKG's, [facility] records)? Report findings @ -Medical records reviewed patient had chest CTA done on 06/01/2024, showed a stable 4.3 cm aneurysm at the aortic root Differential Diagnosis (chest pain, altered mental status, abdominal pain women, abdominal pain men, vaginal bleeding, weakness, fever, dyspnea, syncope, headache, dizziness, GI bleed, back pain, seizure, CVA, palpatations, mental health, musculoskeletal)? @Differential Chest Pain: Stable Angina, Unstable Angina, STEMI, NSTEMI Aortic Dissection, pericarditis, pleurisy, chostochondirits, Pneumothorax, Musculoskeletal, Esophageal Spasm GERD, Cholecystitis, Pancreatitis, Zoster, this is not meant to be an all- inclusive list. EKG interpreted by me (3pts min.). @ -As above X-rays interpreted by me (1pt min.). @ I personally reviewed CXR, I see no evidence of rib fracture, no mediastinal widenening, pneumothorox or other acute process, agree with radiologist interpretation CT interpreted by me (1pt min.). @ Personally reviewed CT scan, I see no evidence of aortic dissection or rib fracture, agree with radiologist interpretation U/S interpreted by me (1pt. min.). @ -None done What testing was considered but not performed or refused? (CT, X-rays, U/S, labs)? Why? @ -None What meds were considered but not given or refused? Why? @ -None Did you discuss the management of the patient with other professionals (professionals i.e. , PA, MATH INTERVENTIONIST, lab, RT, psych nurse, social science teacher, senior ruby developer, teacher, protection officer, keycase assembler)? Give summary @ -No Was smoking cessation discussed for >3mins.? @ -No Was critical care preformed (if so, how long)? @ -No Were there social determinants of health that impacted care today? How? (Homelessness, low income, unemployed, alcoholism, drug addiction, transportation, low edu. Level, literacy, decrease access to med. care, care home, rehab)? @ -No Was there de-escalation of care discussed even if they declined (Discuss DNR or withdrawal of care, Hospice)? @ -No What co-morbidities impacted this encounter? (DM, HTN, Smoking, COPD, CAD, Cancer, CVA, ARF, Chemo, Hep., AIDS, mental health diagnosis, sleep apnea, morb id obesity)? @Thoracic aortic aneurysm Was patient admitted / discharged? Hospital course, mention meds given and route, prescriptions, significant lab abnormalities, going to OR and other pertinent info. @ Discharged- Patient is a 69-year-old gentleman presenting today for right sided chest pain, sharp and pleurtic, that started after bending over a table 2 weeks ago and worsened with position changes today. Physical exam shows well appearing 69 y/o gentleman resting comfortably in NAD. Has equal 2+ radial pulses in bilateral UE. Does have some difficulty taking deep breaths due to pain with deep breathing. Discussed with patient plan for pain control, ASA, morphine, zofran cardiac workup. Pt agreeable with POC. Labs and imaging reviewed. Grossly within normal limits. Abnormal values not concerning for acute pathology related to presenting complaint. On reassessment pt states pain has now improved to 5/10 as opposed to 8/10 on arrival. Will trial norflex and lidocaine given suspected musculoskeletal nature of pain. I did discuss with the patient remaining in the hospital for observation of chest pain however patient would very much like to be discharged home tonight. Because of this, despite negative D dimer, will obtain CTA chest to more closely evaluate thoracic aortic aneurysm to ensure no evidence of significant change in size or dissection and repeat troponin. Patient agreeable w/ POC. CTA showed stable aortic aneurysm, repeat troponin remains undetectable. Pt's en dorsed continued improvement in pain. Updated pt to findings. Though patient does have lower risk HEART score (3), I did again offer him the option for admission for observation of his chest pain however patient would very much like to be discharged home. Given HEART score 3, negative troponin x 2 despite 2 weeks of pain, and improving pain, patient will be discharged home for outpatient follow up. In my medical judgment there is currently no evidence of an immediate life- threatening or surgical condition. Discharge is therefore indicated at this time. Discharge treatment instructions, follow up instructions, and appropriate emergency department return precautions were discussed with the patient and/or medical decision maker. Patient and/or medical decision maker expressed understanding of and agreed with the treatment plan, follow up instructions, and emergency department return precaution. All patient's and/or medical decision maker's questions were answered. The patient was advised that a small risk still exists that a serious condition could develop and was therefore instructed to return to the ED for any changes in symptoms, persistent symptoms, inability to obtain proper follow-up or for any further concerns. Patient received verbal and written instructions for this condition. Undiagnosed new problem with uncertain prognosis? @ -No Drug Therapy requiring intensive monitoring for toxicity (Heparin, Nitro, Insulin, Cardizem)? @ -No Were any procedures done? @ -No Diagnosis/symptom? @Pleuritis Acute, or Chronic, or Acute on Chronic? @ acute Uncomplicated (without systemic symptoms) or Complicated (systemic symptoms)? @ uncomplicated Side effects of treatment? @ -No Exacerbation, Progression, or Severe Exacerbation? @ -No Poses a threat to life or bodily function? How? (Chest pain, [place], [place], pneumonia, PE, COPD, DKA, ARF, appy, cholecystitis, CVA, Diverticulitis, Homicidal, Suicidal, threat to staff... and all critical care pts) @ -No, not at time of discharge - Lab Data Result diagrams: 11/28/24 23:45 11/28/24 23:45 Lab Results 11/28/24 11/28/24 11/28/24 Range/Units 23:45 23:45 23:45 WBC 14.4 H (3.8-10.6) k/uL RBC 5.08 (4.30-5.90) m/uL Hgb 15.1 (13.0-17.5) gm/dL Hct 45.8 (39.0-53.0) % MCV 90.2 (80.0-100.0) fL MCH 29.8 (25.0-35.0) pg MCHC 33.1 (31.0-37.0) g/dL RDW 13.0 (11.5-15.5) % Plt Count 323 (150-450) k/uL MPV 8.1 Neutrophils % 67 % Lymphocytes % 22 % Monocytes % 7 % Eosinophils % 1 % Basophils % 0 % Neutrophils # 9.7 H (1.3-7.7) k/uL Lymphocytes # 3.2 (1.0-4.8) k/uL Monocytes # 1.0 (0-1.0) k/uL Eosinophils # 0.1 (0-0.7) k/uL Basophils # 0.1 (0-0.2) k/uL PT 10.9 (10.0-12.5) sec INR 1.0 (<1.2) APTT 22.9 (22.0-30.0) sec D-Dimer 0.32 (<0.60) mg/L FEU Sodium 139 (137-145) mmol/L Potassium 4.4 (3.5-5.1) mmol/L Chloride 105 (98-107) mmol/L Carbon Dioxide 22 (22-30) mmol/L Anion Gap 12 mmol/L BUN 19 (9-20) mg/dL Creatinine 0.68 (0.66-1.25) mg/dL Est GFR (CKD-EPI)AfAm >90 (>60 ml/min/1.73 sqM) Est GFR (CKD-EPI)NonAf >90 (>60 ml/min/1.73 sqM) Glucose 102 H (74-99) mg/dL Calcium 10.0 (8.4-10.2) mg/dL Magnesium 1.9 (1.6-2.3) mg/dL Total Bilirubin 0.6 (0.2-1.3) mg/dL AST 32 (17-59) U/L ALT 22 (4-49) U/L Alkaline Phosphatase 65 (38-126) U/L Troponin I (0.000-0.034) ng/mL NT-Pro-B Natriuret Pep 247 pg/mL Total Protein 7.0 (6.3-8.2) g/dL Albumin 4.5 (3.5-5.0) g/dL Lipase 90 (23-300) U/L 11/28/24 11/29/24 Range/Units 23:45 02:10 WBC (3.8-10.6) k/uL RBC (4.30-5.90) m/uL Hgb (13.0-17.5) gm/dL Hct (39.0-53.0) % MCV (80.0-100.0) fL MCH (25.0-35.0) pg MCHC (31.0-37.0) g/dL RDW (11.5-15.5) % Plt Count (150-450) k/uL MPV Neutrophils % % Lymphocytes % % Monocytes % % Eosinophils % % Basophils % % Neutrophils # (1.3-7.7) k/uL Lymphocytes # (1.0-4.8) k/uL Monocytes # (0-1.0) k/uL Eosinophils # (0-0.7) k/uL Basophils # (0-0.2) k/uL PT (10.0-12.5) sec INR (<1.2) APTT (22.0-30.0) sec D-Dimer (<0.60) mg/L FEU Sodium (137-145) mmol/L Potassium (3.5-5.1) mmol/L Chloride (98-107) mmol/L Carbon Dioxide (22-30) mmol/L Anion Gap mmol/L BUN (9-20) mg/dL Creatinine (0.66-1.25) mg/dL Est GFR (CKD-EPI)AfAm (>60 ml/min/1.73 sqM) Est GFR (CKD-EPI)NonAf (>60 ml/min/1.73 sqM) Glucose (74-99) mg/dL Calcium (8.4-10.2) mg/dL Magnesium (1.6-2.3) mg/dL Total Bilirubin (0.2-1.3) mg/dL AST (17-59) U/L ALT (4-49) U/L Alkaline Phosphatase (38-126) U/L Troponin I <0.012 <0.012 (0.000-0.034) ng/mL NT-Pro-B Natriuret Pep pg/mL Total Protein (6.3-8.2) g/dL Albumin (3.5-5.0) g/dL Lipase (23-300) U/L Disposition Clinical Impression: Pleuritis Disposition: HOME SELF-CARE Condition: Good Instructions (If sedation given, give patient instructions): Costochondritis (ED) Additional Instructions: Every disease is a spectrum and a small chance still exists that a serious condition could develop, for this reason, please monitor yourself closely for new, changing or worsening symptoms, symptoms that persist beyond 48 hours/do not improve in the next 48 hours, coughing up blood, coughing up thick sputum, sudden worsening of your pain, fever, inability to tolerate/keep down fluids or your medications, inability to follow up with outpatient providers as instructed and should you experience these symptoms or should you have any further concerns for your wellbeing please return to the ED or call 911 immediately. Your pain can be treated with ibuprofen and acetaminophen. You can take up to 400-600 mg of ibuprofen (Advil, Motrin) 3 times daily (every 8 hours) but can also use lower doses if this relieves your pain. Some people prefer naproxen (Aleve, Naprosyn) which can be taken in doses of 500 mg up to twice a day. Do not take both of these medicines together, and do not combine either with ketorolac (Toradol), meloxicam (Mobic), or indomethacin (Tivorbex). Some people can develop stomach discomfort with higher doses of either ibuprofen or naproxen, if this develops decrease your dose or stop taking it. If you need to take this dose daily for more than a week, please schedule an appointment for re-evaluation with your PCP. Please take these medications with food. You can take up to 1000 mg of acetaminophen (Tylenol) every 6 hours. Be careful as this is included in some medicines like Nyquil, Dawson, Percocet, Vicodin, STANBACK, Goody's Powders, and Excedrin. You can also use lidocaine patches for topical pain. You can purchase 4% patches over the counter at most drug stores. These can be helpful for pain from your muscles or bones. PLEASE call your primary care physician as soon as possible to arrange / discuss plan for followup appointment. Appointment in the next 1-3 days is strongly encouraged if possible. PLEASE let us know here before you leave if there is anything further we can do to be of any assistance. Take care and feel Better! Prescriptions: Cyclobenzaprine [Flexeril] 10 mg PO TID #20 tab Is patient prescribed a controlled substance at d/c from ED?: No Referrals: Bruno Walker DO [Primary Care Provider] - 1-2 days
[2024-11-28] MEDS: ASPIRIN 81 MG PO STA (23:48)
[2024-11-28] MEDS: MORPHINE SULFATE 4 MG/ML SYRINGE IV STA (23:50)
[2024-11-28] MEDS: ONDANSETRON 4 MG/2 ML VIAL IVP STA (23:52)
[2024-11-29 00:02] LABS: Basophils # (A) 0.1 k/uL (0-0.2); Basophils % (A) 0 %; Eosinophils # (A) 0.1 k/uL (0-0.7); Eosinophils % (A) 1 %; HCT 45.8 % (39.0-53.0); HGB 15.1 gm/dL (13.0-17.5); Lymphocytes # (A) 3.2 k/uL (1.0-4.8); Lymphocytes % (A) 22 %; MCH 29.8 pg (25.0-35.0); MCHC 33.1 g/dL (31.0-37.0); MCV 90.2 fL (80.0-100.0); Mean Platelet Volume 8.1; Monocytes % (A) 7 %; Neutrophils # (A) 9.7 k/uL (1.3-7.7); Neutrophils % (A) 67 %; Platelet Count 323 k/uL (150-450); RBC 5.08 m/uL (4.30-5.90); WBC 14.4 k/uL (3.8-10.6)
[2024-11-29 00:26] LABS: Partial Thromboplastin Time 22.9 sec (22.0-30.0); Prothrombin Time 10.9 sec (10.0-12.5)
[2024-11-29 00:34] VITALS: RESP 18
[2024-11-29 00:42] LABS: ALT 22 U/L (4-49); AST 32 U/L (17-59); African American GFR (CKD) >90 (>60 ml/min/1.73 sqM); Albumin 4.5 g/dL (3.5-5.0); Alkaline Phosphatase 65 U/L (38-126); Anion Gap 12 mmol/L; Blood Urea Nitrogen 19 mg/dL (9-20); Carbon Dioxide 22 mmol/L (22-30); Chloride 105 mmol/L (98-107); Glucose 102 mg/dL (74-99); Lipase 90 U/L (23-300); Magnesium 1.9 mg/dL (1.6-2.3); Non-African American GFR(CKD) >90 (>60 ml/min/1.73 sqM); Potassium 4.4 mmol/L (3.5-5.1); Sodium 139 mmol/L (137-145); Total Bilirubin 0.6 mg/dL (0.2-1.3)
[2024-11-29 00:51] LABS: NT-Pro-B-Type Natriuretic Pept 247 pg/mL
[2024-11-29] MEDS: ORPHENADRINE 30 MG/ML 2 ML VIAL IVP STA (01:11)
[2024-11-29] MEDS: LIDOCAINE 4% PATCH TOPICAL ONE (01:12)
[2024-11-29 02:22] VITALS: BP 132/76; PULSE 75
--- NOTE | 2024-11-29 02:46 | CT ---
EXAM: CT Angiography Chest With Intravenous Contrast CLINICAL HISTORY: ITS.REASON CT Reason: right CP rad. to shoulder, hx aortic aneurysm TECHNIQUE: Axial computed tomographic angiography images of the chest with intravenous contrast. CTDI is 33 mGy and DLP is 512.7 mGy-cm. This CT exam was performed using one or more of the following dose reduction techniques: automated exposure control, adjustment of the mA and/or kV according to patient size, and/or use of iterative reconstruction technique. MIP reconstructed images were created and reviewed. COMPARISON: No relevant prior studies available. FINDINGS: Pulmonary arteries: Adequate pulmonary opacification. Normal caliber main pulmonary artery. No evidence of acute pulmonary embolism. Aorta: Ectasia of the aortic root measuring 4.3 cm, stable from prior. No aneurysm by size criteria. No dissection. Lungs: Centrilobular and paraseptal emphysema and peripheral fibrotic changes. No consolidation or mass. Pleural space: Unremarkable. No significant effusion. No pneumothorax. Heart: Stable mild cardiomegaly. Coronary artery atherosclerosis. No pericardial effusion. Bones/joints: Osteopenia. No acute fracture or dislocation. Severe joint space narrowing at the right glenohumeral joint. Postoperative changes of the right glenoid. Soft tissues: Unremarkable. Lymph nodes: Unremarkable. No enlarged lymph nodes. Liver: Benign hepatic cysts. IMPRESSION: 1. No evidence of acute pulmonary embolism. 2. Ectasia of the aortic root measuring 4.3 cm, stable from prior. No aneurysm by size criteria. No dissection.
--- NOTE | 2024-11-29 02:48 | XR ---
EXAM: XR Chest, 2 Views CLINICAL HISTORY: ITS.REASON XR Reason: right sided CP after lifting heavy object 2 weeks TECHNIQUE: Frontal and lateral views of the chest. COMPARISON: No relevant prior studies available. FINDINGS: Lungs: Emphysematous and fibrotic changes with reduced lung volumes. No airspace consolidation. Pleural space: No pleural effusion or pneumothorax. Heart: Mild cardiomegaly. Bones/joints: Postoperative change of the right glenoid. Advanced degeneration of the right glenohumeral joint. No acute osseous findings. IMPRESSION: Emphysematous and fibrotic changes with reduced lung volumes. No airspace consolidation.
[2024-11-29] MEDS: KETOROLAC 15 MG/ML 1 ML VIAL IVP STA (02:59)
== END 2024-11-29 03:28 | disposition home or self-care (01) ==
LOC: EC 23:01
DX: R09.1 Pleurisy (principal); Z88.0 Allergy status to penicillin; Z88.2 Allergy status to sulfonamides; Z87.891 Personal history of nicotine dependence
CPT/HCPCS: 99285 ×2; 96374 ×2; 96375 ×5; 36415 ×2; 93005; 85379; 83880; 80053; 83690; 83735; 84484 ×2; 85025; 85610; 85730; 71046; 71275; J2270; J2360; J2405; J1885; Q9967